=== PATIENT | female | born 1955 | race Caucasian/White ===

== ENCOUNTER 2016-09-29 10:15 | Observation (INO) | payer MEDICAID ==
[2016-09-29] MEDS ORDERED: BUPIVACAINE 0.5% 30 ML SDV ONE (10:57)
[2016-09-29] MEDS ORDERED: ceFAZolin 2 GM/DEXTROSE 100 ML IV ONE (11:00)
[2016-09-29] MEDS ORDERED: fentaNYL 100 MCG/2 ML INJ ONE (12:22)
[2016-09-29] MEDS ORDERED: PROPOFOL 200 MG/20 ML VIAL ONE (12:23)
[2016-09-29] MEDS ORDERED: MIDAZOLAM 2 MG/2 ML VIAL ONE (12:39)
[2016-09-29 13:26] LABS: ANION GAP 16 mEq/L (8-16); CARBON DIOXIDE 36 mEq/l (22-31); CHLORIDE 87 mEq/L (97-110); SODIUM 139 mEq/L (134-144)
[2016-09-29 13:38] LABS: POTASSIUM 2.5 mEq/L (3.5-5.2)
[2016-09-29] MEDS ORDERED: PROTOCOL POTASSIUM 1 DOSE MISC PRN (14:22)
[2016-09-29] MEDS ORDERED: diphenhydrAMINE 25 MG CAP PO PRN (14:23)
[2016-09-29] MEDS ORDERED: ONDANSETRON DISINTEGRATING 4 MG TAB PO PRN (14:23)
[2016-09-29] MEDS ORDERED: HYDROCODONE/APAP 5/325 TAB PO PRN (14:23)
[2016-09-29] MEDS ORDERED: ACETAMINOPHEN 325 MG TAB PO PRN (14:23)
[2016-09-29] MEDS ORDERED: ONDANSETRON 4 MG/2 ML VIAL IVP PRN (14:23)
[2016-09-29] MEDS: POTASSIUM Cl (KCl) 50 ML IV SCH ×5 (17:11→23:35)
[2016-09-29 20:06] LABS: POTASSIUM 3.2 mEq/L (3.5-5.2)
[2016-09-29] MEDS: IBUPROFEN 800 MG TAB PO SCH (23:01)
[2016-09-30] MEDS: POTASSIUM Cl (KCl) 50 ML IV SCH ×4 (01:36→09:22)
[2016-09-30 03:40] VITALS: RESP 16
[2016-09-30] MEDS: IBUPROFEN 800 MG TAB PO SCH (05:46)
--- NOTE | 2016-09-30 06:55 | SOAPPROG ---
SOAP Progress Note Assessment/Plan: Assessment: POD # 2 s/p lap J tube for obstruction due to pancreatic cancer Hypokalemia - improved DC home - will go to [facility] for chemo and they will set up tube feeds J tube education S/: Feeling well, did not take any pain medications. No emesis last nigh Incisions cdi Soft and non tender Plan: 09/30/16 06:53 Objective: Vital Signs Temp Pulse Resp BP Pulse Ox 36.6 C 70 16 84/51 L 98 09/30/16 03:39 09/30/16 03:39 09/30/16 03:39 09/30/16 03:39 09/30/16 03:39 09/29/16 09/30/16 10/01/16 05:59 05:59 05:59 Intake Total 1900 Output Total 25 Balance 1875 ICD10 Worksheet Patient Problems: Problems Problem Status Onset Pancreatic cancer Acute - ICD10 Problem Qualifiers (1) Pancreatic cancer Qualifiers: Pancreatic malignancy location: P
[2016-09-30 06:56] LABS: POTASSIUM 3.4 mEq/L (3.5-5.2)
[2016-09-30] MEDS ORDERED: POTASSIUM Cl (KCl) 10 MEQ/100 ML BAG IV ONE (07:31)
[2016-09-30 08:52] VITALS: BP 108/60; PULSE 92; TEMP 97.2; O2SAT 93
--- NOTE | 2016-09-30 11:21 | GOP ---
[f rep st] OPERATIVE REPORT DATE OF OPERATION: 09/29/2016 SURGEON: Deja Yao MD PERCH MACHINE INSPECTOR: Amaris Meehan, MEREDITH. ANESTHESIA: General. PREOPERATIVE DIAGNOSIS: Pancreatic cancer that is obstructing the duodenum and inability to tolerate p.o. intake. POSTOPERATIVE DIAGNOSIS: Pancreatic cancer that is obstructing the duodenum and inability to tolerate p.o. intake. PROCEDURE PERFORMED: Laparoscopic-assisted jejunostomy tube placement. FINDINGS: No obvious stigmata of pancreatic cancer. I did not mobilize the duodenum to visualize the obstruction. SPECIMENS: None. ESTIMATED BLOOD LOSS: 5 cc. INDICATIONS: The patient is a 61-year-old woman with pancreatic cancer. It is believed the mass is obstructing the duodenum upstream. She is able to the eat throughout the day but then has large volume emesis every night. She has lost a significant amount of weight. She is undergoing chemotherapy. DESCRIPTION OF PROCEDURE: Patient was brought into the operating room, placed supine on the table, and general anesthesia was administered. Her abdomen was prepped and draped in the usual sterile fashion. I infiltrated all sites with 0.5% Marcaine prior to making incisions. I made an incision at the umbilicus. I inserted the Veress needle. It passed the hanging drop test. Her abdomen insufflated easily to a pressure of 15 mmHg. I placed a 5 mm camera with a trocar at this site. I placed 2 additional 5 mm trocars on the right side of her abdomen. I identified the ligament of Treitz and followed this somewhat distally. I selected a point on her left upper quadrant to place the jejunostomy. I inserted the making the Bj-Patino Sizer 18-Albanian 3 cm. Next, I made a small incision by her umbilicus. I inserted an Kiran wound protector. I created 4 sutures on the jejunum and adhered these loosely to the anterior abdominal wall. I then created a pursestring on the jejunum. I made an enterotomy in the center of the pursestring. I inserted the jejunostomy tube and threaded this so that the tube was going distally. I tightened the pursestring suture and then I tightened the second layer of suture I reinsufflated the abdomen. I filled the balloon under direct vision. I then placed 60 cc of saline in her jejunum with no obvious leaks. I saw 1 area where the jejunum was not fully secured to the anterior abdominal wall. I removed the laparoscopic equipment and I placed 1 additional suture from the jejunum to the anterior abdominal wall. The midline wound was closed with 0 PDS. All skin was closed with 4-0 Monocryl. She was awakened in the operating room, extubated, transferred to PACU in stable condition. /[id number]/MODL MTDD
--- NOTE | 2016-09-30 14:40 | POSTANESTH ---
Post Anesthetic Evaluation Notes: Patient's potassium level up to 3.4 this am. VSS
== END 2016-09-30 10:55 | disposition home or self-care (01) ==
LOC: F3E 10:15
PROVIDERS: ADMIT Surgery; ATTEND Surgery
PROC: 0DHA4UZ Insertion of Feeding Device into Jejunum, Percutaneous Endoscopic Approach (ICD-10-PCS; principal; 2016-09-29 12:00)
DX: K31.5 Obstruction of duodenum (principal); C25.9 Malignant neoplasm of pancreas, unspecified; C78.7 Secondary malignant neoplasm of liver and intrahepatic bile duct; E87.6 Hypokalemia
CPT/HCPCS: 44372; 97165; G0378; J0690; J1642; J2250; J2704; J3010

== ENCOUNTER → 2016-10-05 | Outpatient (CLI) | payer MEDICAID | LOC: FIMAGING 14:59 | DX: J40 Bronchitis, not specified as acute or chronic (principal); Z92.25 Personal history of immunosuppression therapy ==

== ENCOUNTER 2016-10-06 10:32 | Inpatient (IN) | payer MEDICAID ==
[2016-10-06] MEDS ORDERED: NS 1,000 ML IV ONE (11:20)
[2016-10-06 12:35] LABS: ABSOLUTE IMMATURE GRANULOCYTES 0.04 10^3/uL (0.00-0.10); ADD DIFF? NO; ADD MORPH? NO; ADD SCAN? NO; ATYPICAL LYMPHOCYTE FLAG 80 (0-99); FRAGMENT RBC FLAG 0 (0-99); HEMATOCRIT 37.9 % (38.0-47.0); HEMOGLOBIN 12.9 g/dL (12.6-16.3); LEFT SHIFT FLG 20 (0-99); LIPEMIA HEMOLYSIS FLAG 90 (0-99); MEAN CELL HEMOGLOBIN 30.9 pg (27.9-34.1); MEAN CELL VOLUME 90.7 fL (81.5-99.8); MEAN PLATELET VOLUME 12.7 fL (8.7-11.7); PLATELET CLUMPS FLAG 0 (0-99); PLATELET COUNT 136 10^3/uL (150-400); RED BLOOD CELL COUNT 4.18 10^6/uL (4.18-5.33); RED CELL DISTRIBUTION WIDTH 15.3 % (11.5-15.2)
[2016-10-06 12:42] LABS: ALANINE AMINOTRANSFERASE 32 IU/L (9-52); ALBUMIN 3.6 g/dL (3.5-5.0); ALKALINE PHOSPHATASE 86 IU/L (38-126); ANION GAP 16 mEq/L (8-16); ASPARTATE AMINOTRANSFERASE 45 IU/L (14-46); BILIRUBIN,TOTAL 1.1 mg/dL (0.1-1.4); BILIRUBIN-CONJUGATED 0.6 mg/dL (0.0-0.5); BILIRUBIN-UNCONJUGATED 0.5 mg/dL (0.0-1.1); CALCIUM 9.2 mg/dL (8.5-10.4); CARBON DIOXIDE 32 mEq/l (22-31); CHLORIDE 88 mEq/L (97-110); CREATININE 0.8 mg/dL (0.6-1.0); GLOMERULAR FILTRATION RATE > 60; GLUCOSE 93 mg/dL (70-100); POTASSIUM 3.2 mEq/L (3.5-5.2); SODIUM 136 mEq/L (134-144); TOTAL PROTEIN 6.6 g/dL (6.3-8.2)
[2016-10-06] MEDS ORDERED: AZITHROMYCIN IV 500 MG in D5W 250 ML IV ONE (13:04)
[2016-10-06] MEDS ORDERED: ONDANSETRON 4 MG/2 ML VIAL IVP ONE (13:13)
--- NOTE | 2016-10-06 13:13 | EDPHY ---
H & P Time Seen by Provider: 10/06/16 11:37 HPI/ROS: HPI Vomiting, I have pneumonia. History of pancreatic cancer. 61-year-old female by private vehicle with friend. Patient has a history of pancreatic cancer. She had a J-tube placed a few days ago. This was to circumvent a blockage in her proximal small intestine associated with her pancreatic cancer. She reports that yesterday she received some formula to insert through the J-tube. She administered by pump 3-4 servings of this formula. She then felt extremely uncomfortable and backed up. She had an episode of vomiting. She had abdominal discomfort through the night and then felt bloated again this morning had another episode of vomiting. She felt the urge to defecate but was unable to do so. She then defecated on herself well in the waiting room to the emergency department. She also reports that she had a chest x-ray done yesterday which showed a pneumonia. She was to fill a prescription for antibiotics yesterday but was unable to do this at her [facility]. ROS: Constitutional: No fever, no chills. No weakness. Eyes: No discharge. No changes in vision. ENT: No sore throat. No nasal congestion or rhinorrhea. Respiratory: No cough. No shortness of breath. Cardiac: No chest pain, no palpitations. Gastrointestinal: As above. Constipation. No diarrhea. Genitourinary: No hematuria. No dysuria or increased frequency with urination. Musculoskeletal: No back pain. No neck pain. No myalgias or arthralgias. Skin: No rashes. Neurological: No headache. No focal weakness or altered sensation. Past medical history: Pancreatic cancer. She is under treatment by Dr. Constantino, oncologist, she is currently undergoing chemotherapy. Last treatment was last Wednesday. She is scheduled for another treatment tomorrow. Left hip replacement and pneumonia as above. Social history: Here with her friend. Nonsmoker. No alcohol. Physical Exam: General Appearance: Alert. This patient is responding to questions appropriately and in full sentences. This patient appears well-hydrated and well-nourished. Eyes: Pupils equal and round no pallor or injection. No lid edema, erythema or injection. Respiratory: There are no retractions, lungs are clear to auscultation anteriorly with good air movement bilaterally. Cardiovascular: Regular rate and rhythm. No murmur. Gastrointestinal: Abdomen is soft with mild and vague tenderness throughout, incisions from J-tube placement are clean dry and intact, no masses, bowel sounds present but diminished. No focal tenderness at McBurney's point. No Ocrtez sign. Neurological: Motor sensory function is grossly intact. Cranial nerves are normal. Gait is normal. Skin: Warm and dry, no rashes. Musculoskeletal: Neck is supple and nontender. Extremities are symmetrical. All joints range without pain or impingement. Psychiatric: No agitation. No depression. Database: EKG: Imaging: Chest x-ray PA and lateral from yesterday; the cardiac mediastinal silhouette is unremarkable. No pneumothorax. Atelectasis versus patchy pneumonia left lower base. No acute cardiopulmonary disease process noted. Interpreted by me. Upright abdominal x-ray series: No free air. Upper abdomen air-fluid levels. Indicative of partial small-bowel obstruction versus ileus. Interpreted by me. Procedures: Emergency department course: IV placed. She was placed on a lunchroom monitor. She was started on IV normal saline with 1-2 L to be given over the next 1-2 hours. After review of her medical records and chest x-ray she was started on IV azithromycin and IV Rocephin. She was in the hospital for 1 day last week. Hospital-acquired pneumonia is unlikely. Plan will be to admit her to the hospitalist service. Surgical consultation as needed for progress in symptoms of bowel obstruction. 1:30 p.m., discussed with hospitalist service. I do not feel that emergent surgical consultation is needed at this time. Patient accepted to the hospitalist service under the care of Dr. Koenig. Surgery will be consulted by the hospitalist service if the patient develops worsening abdominal pain or vomiting. Patient will be admitted to [address] [place] [address]. 2:00 p.m., patient resting comfortably. Repeat abdominal exam she is soft, nontender nondistended. She was admitted to the hospitalist service in stable and improved condition. Differential Diagnosis: The differential diagnosis on this patient includes but is not limited to pneumonia, ileus versus partial small-bowel obstruction, history of pancreatic cancer, on chemotherapy. This represents a partial list of diagnoses considered. These considerations are based on history, physical exam, past history, reassessment and diagnostic testing. Smoking Status: Never smoked Constitutional: Initial Vital Signs Temperature (C) 37.6 C 10/06/16 10:36 Heart Rate 113 H 10/06/16 10:36 Respiratory Rate 20 10/06/16 10:36 Blood Pressure 102/68 10/06/16 10:36 O2 Sat (%) 93 10/06/16 10:36 O2 Delivery Mode Room Air Allergies/Adverse Reactions: hydromorphone [From Dilaudid] Allergy (Verified 10/06/16 10:35) Home Medications: Medication Instructions Recorded NK [No Known Home Meds] 09/29/16 Medical Decision Making - Data Points Laboratory Results: Laboratory Results 10/06/16 11:10 10/06/16 11:10 Medications Given: Discontinued Medications Sodium Chloride (Ns) 1,000 mls @ 0 mls/hr IV ONCE ONE PRN Reason: Wide Open Stop: 10/06/16 11:21 Last Admin: 10/06/16 11:20 Dose: 1,000 mls Azithromycin 500 mg/ Dextrose 255 mls @ 255 mls/hr IV EDNOW ONE PRN Reason: Protocol Stop: 10/06/16 14:03 Last Admin: 10/06/16 13:55 Dose: 255 mls Ceftriaxone Sodium/Dextrose (Rocephin 1 Gm (Premix)) 50 mls @ 100 mls/hr IV EDNOW ONE PRN Reason: Protocol Stop: 10/06/16 13:33 Last Admin: 10/06/16 13:05 Dose: 50 mls Potassium Chloride (Potassium Cl 10 Meq (Premix)) 100 mls @ 100 mls/hr IV Q1H GURPREET Stop: 10/06/16 17:44 Last Admin: 10/06/16 17:01 Dose: 100 mls Potassium Chloride (Potassium Cl 10 Meq (Premix)) 100 mls @ 100 mls/hr IV ONCE ONE Stop: 10/06/16 23:59 Last Admin: 10/06/16 23:04 Dose: 100 mls Ondansetron HCl (Zofran) 4 mg IVP EDNOW ONE Stop: 10/06/16 13:14 Last Admin: 10/06/16 13:56 Dose: Not Given Departure - Departure Disposition: [facility] Acute Clinical Impression: Pneumonia, Pancreatic cancer, Partial small bowel obstruction
[2016-10-06] MEDS ORDERED: ONDANSETRON 4 MG/2 ML VIAL IVP PRN (14:36)
[2016-10-06] MEDS ORDERED: ONDANSETRON DISINTEGRATING 4 MG TAB PO PRN (14:36)
[2016-10-06] MEDS ORDERED: ACETAMINOPHEN 325 MG TAB PO PRN (14:36)
[2016-10-06] MEDS ORDERED: PROMETHAZINE HCL 25 MG/ML INJ IVP PRN (15:06)
[2016-10-06] MEDS: POTASSIUM Cl (KCl) 100 ML IV SCH ×2 (15:13→17:01)
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
[2016-10-06] MEDS: NS 1,000 ML IV SCH (21:19)
[2016-10-06] MEDS ORDERED: POTASSIUM Cl (KCl) 100 ML IV ONE (23:00)
[2016-10-07 04:31] LABS: HEMATOCRIT 31.1 % (38.0-47.0); HEMOGLOBIN 10.5 g/dL (12.6-16.3); MEAN CELL HEMOGLOBIN 30.9 pg (27.9-34.1); MEAN CELL HEMOGLOBIN CONCENTR. 33.8 g/dL (32.4-36.7); MEAN CELL VOLUME 91.5 fL (81.5-99.8); RED BLOOD CELL COUNT 3.4 10^6/uL (4.18-5.33); RED CELL DISTRIBUTION WIDTH 15.3 % (11.5-15.2)
[2016-10-07 04:50] LABS: ANION GAP 11 mEq/L (8-16); CALCIUM 8.2 mg/dL (8.5-10.4); CARBON DIOXIDE 30 mEq/l (22-31); CHLORIDE 95 mEq/L (97-110); CREATININE 0.6 mg/dL (0.6-1.0); GLOMERULAR FILTRATION RATE > 60; GLUCOSE 80 mg/dL (70-100); POTASSIUM 3.1 mEq/L (3.5-5.2); SODIUM 136 mEq/L (134-144)
[2016-10-07] MEDS: NS 1,000 ML IV SCH (05:27)
--- NOTE | 2016-10-07 07:45 | GCON ---
[f rep st] CONSULTATION HEMATOLOGY/ONCOLOGY CONSULTATION REASON FOR CONSULTATION: Admission for recurrent nausea and vomiting. RECOMMENDATIONS: Surgical consultation for consideration of possible gastrojejunostomy at some in . EXECUTIVE SUMMARY: The patient is a very nice, 61-year-old woman with a diagnosis of pancreatic can cer since July 08, 2016, with liver metastases. She is on first-line therapy with Abraxane and gemc itabine and has continued on that treatment with relatively stable disease. A CT scan, for example, on July 08 revealed a 2.2 cm mass and metastasis in the liver with a 2.7 x 3.9 cm mass in the tail of the pancreas. The CAT scans were reviewed today. I looked at the last film which was September 21 and I compared that to the film from July 27. The findings reveal a hypodense lesion in the right lob e of the liver which I measured at about 37 mm on September 21 and I compared that to the film from July 27 where that mass was about, on my measurements, 22 mm. The patient's films on September 21 revealed a v lisa large and distended stomach and the primary tumor is small and is located in the tail of the bull creas. It looks like it may be even slightly smaller at 21 mm. This duodenal obstruction is most likely due to the pancreatic cancer and raises a question whether she would benefit from a gastrojejunostomy. I have reached out to Dr. Yao. I have asked her to e valuate the patient; however, the patient is now on day 8, cycle 3 of chemotherapy with Abraxane and gemcitabine and she is starting to develop a mild pancytopenia. Her white count is 3.[address] atelet count is 136. So, before anything could be done surgically, she would need to have some bola very in her blood counts. PAST MEDICAL HISTORY: Reveals that she was initially diagnosed in [place]. The patient has transf erred her care to [place] for personal reasons. She is a nonsmoker. She has had an influenza vacci ne. Her past medical history is remarkable for some bronchitis, asthma and benign positional vertig o. She has had a left hip replacement, a right arm fracture and a T and A. FAMILY HISTORY: Her father of small cell lung cancer and her mother at 59 of breast cance r. She has 1 sister who of renal failure. She had a maternal grandmother who of colon ca ncer and a maternal aunt who of uterine cancer. 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 She does not use alcohol. REVIEW OF SYSTEMS: She is very pleasant. She is not in any pain. She denies any headache. She di d not have any shortness of breath. There is no chest pain and she denies any abdominal pain. She says that when her stomach fills up with bowel she vomits it up and she came into the hospital [facility] of difficulty with bowel movements. The patient underwent a small bowel follow-through and did n ot have any evidence for a small bowel obstruction. CLINICAL EXAMINATION: GENERAL: A well-developed, well-nourished, white female. HEENT: She has no scleral icterus. NECK: I do not detect any cervical or supraclavicular axillary adenopathy. LUNG S: Clear to P and A. CV: S1 normal, S2 normally split. No S3, S4 or murmur. ABDOMEN: She has a jejunostomy tube in the epigastrium. I do not detect any hepatosplenomegaly or abdominal masses or ascites. EXTREMITIES: There is no extremity edema or calf tenderness. NEUROLOGICAL: She is inta ct. ASSESSMENT BY PROBLEM: 1. Duodenal obstruction due to pancreatic cancer. 2. Evolving mild pancytopenia from gemcitabine and Abraxane. RECOMMENDATIONS: I would recommend a surgical consult with Dr. Yao and I recommended, possibly john denis is a candidate for a gastrojejunostomy. I am not as familiar with her case as Dr. Yao and I wou ld defer to, obviously, her judgment. The pancreatic cancer may be progressing. The CA-19-9 had been ordered and the one on July 15 was 2700, the one on September 23 was 5440. Her tumor has been consent for foundation 1 testing and the resul ts will be back around October 13 to look for alternative options in a clinical trial setting. Obvious ly her prognosis is very concerning although she is not eminently in danger at this point. I would estimate her prognosis though most likely less than 6 months. /[id number]/MODL
[2016-10-07] MEDS ORDERED: ENOXAPARIN 40 MG/0.4 ML SYR SC SCH (09:00)
[2016-10-07] MEDS ORDERED: AZITHROMYCIN 250 MG TAB PO SCH (09:00)
[2016-10-07] MEDS ORDERED: POTASSIUM CL 20 MEQ/15 ML UDCUP PO ONE (10:17)
[2016-10-07] MEDS: ENOXAPARIN 40 MG/0.4 ML SYR SC SCH (10:25)
[2016-10-07] MEDS: POTASSIUM Cl (KCl) 100 ML IV SCH ×5 (11:08→16:35)
--- NOTE | 2016-10-07 12:55 | HOSPPROG ---
Hospitalist Progress Note Assessment/Plan: #Nausea/vomiting: improved. h/o duodenal obstruction due to cancer -small bowel follow through negative for SBO -will have dietary assist with TFs -Dr Dia consulted Dr. Yao for G-J tube #Hypokalemia: repleting. Repeat BMP this afternoon #Metastatic pancreatic cancer -scheduled for chemo today -I counseled her on Palliative care and she is interested in speaking with them #Fever: low-grade. + metapneuomvirus. Supportive care. No IV abx #Thrombocytopenia: due to chemo #Diet: TFs #Disp: warrants inpt admission for surgical consult, IVFs, electrolyte repletion Subjective: mild abd distension. No pain Objective: Vital Signs Temp Pulse Resp BP Pulse Ox 36.8 C 82 18 109/67 96 10/07/16 07:55 10/07/16 07:55 10/07/16 07:55 10/07/16 07:55 10/07/16 07:55 Microbiology 10/06/16 15:50 Respiratory Panel (PCR) - Final Nasal, Sinus - [place] Viral Transport Human Metapneumovirus Laboratory Results 10/07/16 03:54 10/07/16 03:54 10/06/16 10/07/16 10/08/16 05:59 05:59 05:59 Intake Total 3000 Output Total 150 Balance 2850 - Physical Exam Constitutional: no apparent distress Eyes: PERRL Ears, Nose, Mouth, Throat: moist mucous membranes Cardiovascular: regular rate and rhythym, no murmur, rub, or gallop Respiratory: no respiratory distress, rhonchi Gastrointestinal: normoactive bowel sounds, soft, non-tender abdomen, distension , other (J-tube in place with no redness/drainage) Genitourinary: no bladder fullness Skin: warm Musculoskeletal: full muscle strength Neurologic: AAOx3 ICD10 Worksheet Patient Problems: Problems Problem Status Onset Pancreatic cancer Acute Partial small bowel obstruction Acute Pneumonia Acute Pancreatic cancer Acute
--- NOTE | 2016-10-07 13:14 | SOAPPROG ---
SOAP Progress Note Assessment/Plan: Assessment: will dictate full consult bilious emesis continued would like venting gastrostomy tube I put in order to be done through IR Plan: 10/07/16 13:13 Objective: Vital Signs Temp Pulse Resp BP Pulse Ox 36.8 C 82 18 109/67 96 10/07/16 07:55 10/07/16 07:55 10/07/16 07:55 10/07/16 07:55 10/07/16 07:55 Microbiology 10/06/16 15:50 Respiratory Panel (PCR) - Final Nasal, Sinus - [place] Viral Transport Human Metapneumovirus Laboratory Results 10/07/16 03:54 10/07/16 03:54 10/06/16 10/07/16 10/08/16 05:59 05:59 05:59 Intake Total 3000 Output Total 150 Balance 2850 ICD10 Worksheet Patient Problems: Problems Problem Status Onset Pancreatic cancer Acute Partial small bowel obstruction Acute Pneumonia Acute Pancreatic cancer Acute
[2016-10-07 14:22] LABS: ANION GAP 15 mEq/L (8-16); CALCIUM 8.4 mg/dL (8.5-10.4); CARBON DIOXIDE 27 mEq/l (22-31); CHLORIDE 94 mEq/L (97-110); CREATININE 0.6 mg/dL (0.6-1.0); GLOMERULAR FILTRATION RATE > 60; GLUCOSE 75 mg/dL (70-100); POTASSIUM 3.5 mEq/L (3.5-5.2); SODIUM 136 mEq/L (134-144)
[2016-10-08 05:56] LABS: ANION GAP 15 mEq/L (8-16); CALCIUM 8.5 mg/dL (8.5-10.4); CARBON DIOXIDE 26 mEq/l (22-31); CHLORIDE 96 mEq/L (97-110); CREATININE 0.6 mg/dL (0.6-1.0); GLOMERULAR FILTRATION RATE > 60; GLUCOSE 69 mg/dL (70-100); POTASSIUM 3.5 mEq/L (3.5-5.2); SODIUM 137 mEq/L (134-144)
[2016-10-08 06:02] LABS: APTT 28.6 SEC (23.0-38.0)
--- NOTE | 2016-10-08 06:15 | GCON ---
[f rep st] CONSULTATION DATE OF CONSULTATION: 10/07/2016 REFERRING PHYSICIAN: Philip Dia MD REQUESTING PHYSICIAN: Philip Dia MD. CHIEF COMPLAINT: Continued emesis. HISTORY OF PRESENT ILLNESS: The patient is a 61-year-old woman with a history of pancreatic cancer. She had a J-tube placed by me several days ago. She reports that she has had difficulty in handli ng the feeds, and has not had good instruction at home. She is continuing to have bilious emesis. She felt that she was blocked, and then took magnesium citrate. She had a very small bowel movement . Due to increased abdominal distention, not tolerating J-tube feeds, and emesis, she presented to the ER. When she arrived at the ER, the magnesium citrate began to work, and she has had several wendy wel movements since then. She feels so much better since she has had these bowel movements. She adkins s not had emesis since yesterday morning. PAST MEDICAL HISTORY: Pancreatic cancer. PAST SURGICAL HISTORY: Jejunostomy and left hip replacement. SOCIAL HISTORY: She denies tobacco use. She does not use alcohol. REVIEW OF SYSTEMS: Ten-point review of systems is negative, except for HPI. FAMILY HISTORY: Unchanged. PHYSICAL EXAMINATION: VITAL SIGNS: 36.8, 82, 109/67, 18, 96% on 3 L. GENERAL: Pleasant woman adamaris lowe in bed. She is well nourished. She is surrounded by family and friends. HEENT: Alopecia. No g ross hearing deficits. Mucous membranes dry. Pupils equal and round. No scleral icterus. LUNGS: No increased work of breathing. CARDIAC: Regular rate. ABDOMEN: J-tube site and incision clean, dry and intact. Bowel sounds are present. She is soft and nontender. MUSCULOSKELETAL: Normal na ils. PSYCH: Mood and affect normal. NEURO: Grossly intact. LABORATORY DATA: Results reviewed. I personally reviewed her laboratory work. Her platelets are 8 5. She had a small bowel follow-through, which showed contrast in the jejunum and no obvious signs of l eakage. IMPRESSION/PLAN: The patient is a 61-year-old with pancreatic cancer. The cancer is compressing he r duodenum. I was asked if a gastrojejunostomy tube is appropriate. At this time, I cannot remove her jejunostomy tube, as it is less than a week old. She could have a venting gastrostomy tube. I discussed this case with both Interventional Radiology, as well as with Dr. Perez. One issue with reviewing her CT scan, is that she does have some varices on her stomach. The case will continue to be discussed, but I do think it is a possibility for a percutaneous gastrostomy tube or a drain to be placed. There is a risk of bleeding from this. The other option is to do an open gastrostomy tu be. We also discussed duodenal stents, although I think for her, the option of a venting gastrostom y tube would be better. She will continue to be n.p.o. We will also work on social work and having better home health, who is more accustomed to helping with her tube feedings. /[id number]/MODL
[2016-10-08 06:31] LABS: INR 1.46 (0.83-1.16); PROTIME(PATIENT) 17.7 SEC (12.0-15.0)
--- NOTE | 2016-10-08 07:36 | SOAPPROG ---
[facility] Progress Note Assessment/Plan: Assessment: 1. Duodenal obstruction from pancreatic cancer: She will have a venting gastrostomy performed by surgery today. 2. Worsening pancreatic cancer: She wants to have a discussion tomorrow about prognosis, options, and what to expect. Plan: 10/08/16 07:27 Subjective: Priya is a very pleasant 61 yo F with metastatic pancreatic cancer and recurrent N/V due to duodenal obstruction. Objective: Vital Signs Temp Pulse Resp BP Pulse Ox 36.8 C 82 18 110/57 L 98 10/08/16 05:32 10/08/16 05:32 10/08/16 05:32 10/08/16 05:32 10/08/16 05:32 Laboratory Results 10/08/16 05:40 10/07/16 10/08/16 10/09/16 05:59 05:59 05:59 Intake Total 350 Balance 350 PT 17.7 SEC (12.0-15.0) H 10/08/16 05:40 INR 1.46 (0.83-1.16) H 10/08/16 05:40 Awake. vomiting Neck neg Lungs clear CVS reg Abd non tender ICD10 Worksheet Patient Problems: Problems Problem Status Onset Pancreatic cancer Acute Pneumonia Acute Pancreatic cancer Acute Partial small bowel obstruction Acute
[2016-10-08 08:17] LABS: % IMMATURE GRANULYOCYTES 0.5 % (0.0-1.1); ABSOLUTE IMMATURE GRANULOCYTES 0.03 10^3/uL (0.00-0.10); ADD DIFF? NO; ADD MORPH? NO; ADD SCAN? YES; FRAGMENT RBC FLAG 0 (0-99); HEMATOCRIT 33.1 % (38.0-47.0); HEMOGLOBIN 11.3 g/dL (12.6-16.3); LEFT SHIFT FLG 10 (0-99); LIPEMIA HEMOLYSIS FLAG 90 (0-99); MEAN CELL HEMOGLOBIN 31.7 pg (27.9-34.1); MEAN CELL HEMOGLOBIN CONCENTR. 34.1 g/dL (32.4-36.7); MEAN CELL VOLUME 92.7 fL (81.5-99.8); MEAN PLATELET VOLUME 11.9 fL (8.7-11.7); PLATELET CLUMPS FLAG 10 (0-99); PLATELET COUNT 120 10^3/uL (150-400); RED BLOOD CELL COUNT 3.57 10^6/uL (4.18-5.33); RED CELL DISTRIBUTION WIDTH 15.5 % (11.5-15.2)
[2016-10-08 08:18] LABS: ATYPICAL LYMPHOCYTE FLAG 200 (0-99)
[2016-10-08 09:24] LABS: SCAN NEGATIVE
--- NOTE | 2016-10-08 09:38 | HOSPPROG ---
Hospitalist Progress Note Assessment/Plan: #Nausea/vomiting: improved. h/o duodenal obstruction due to cancer -small bowel follow through negative for SBO -will have dietary assist with TFs #Duodenal obstruction: vented gastrostomy tube per surgery today #Hypokalemia: repleting. Repeat BMP this afternoon #Metastatic pancreatic cancer -scheduled for chemo today -I counseled her on Palliative care and she is interested in speaking with them #Fever: low-grade. + metapneuomvirus. Supportive care. No IV abx #Thrombocytopenia: due to chemo #Diet: TFs #Disp: warrants inpt admission for surgical consult, IVFs, electrolyte repletion Subjective: nausea overnight. Low glucose this morning Objective: Vital Signs Temp Pulse Resp BP Pulse Ox 36.7 C 79 16 110/49 L 95 10/08/16 08:17 10/08/16 08:17 10/08/16 08:17 10/08/16 08:17 10/08/16 08:17 Laboratory Results 10/08/16 08:00 10/08/16 05:40 10/07/16 10/08/16 10/09/16 05:59 05:59 05:59 Intake Total 350 Balance 350 PT 17.7 SEC (12.0-15.0) H 10/08/16 05:40 INR 1.46 (0.83-1.16) H 10/08/16 05:40 - Physical Exam Constitutional: chronically ill appearing Eyes: PERRL Ears, Nose, Mouth, Throat: dry mucous membranes Cardiovascular: regular rate and rhythym, no murmur, rub, or gallop Respiratory: no respiratory distress Gastrointestinal: normoactive bowel sounds, soft, non-tender abdomen, other (j- tube in place. Mild distension) Musculoskeletal: full muscle strength Neurologic: AAOx3, CN II-XII Intact Psychiatric: interacting appropriately ICD10 Worksheet Patient Problems: Problems Problem Status Onset Pancreatic cancer Acute Partial small bowel obstruction Acute Pneumonia Acute Pancreatic cancer Acute
[2016-10-08] MEDS: D5W NS 1,000 ML IV SCH ×2 (09:58→16:05)
[2016-10-08] MEDS ORDERED: D50W 25 GM/50 ML SYR IVP PRN (10:53)
[2016-10-08] MEDS ORDERED: D10W 250 ML PRN HYPOGLYCEMIA IV (11:30)
[2016-10-08] MEDS ORDERED: fentaNYL 100 MCG/2 ML INJ ONE (12:44)
[2016-10-08] MEDS ORDERED: MIDAZOLAM 2 MG/2 ML VIAL ONE (12:45)
[2016-10-08] MEDS ORDERED: LIDOCAINE 2% JELLY 20 ML (UROJECT) ONE (13:02)
[2016-10-08] MEDS ORDERED: IOPAMIDOL (ISOVUE-300) 100 ML BTL ONE (13:38)
[2016-10-08] MEDS ORDERED: LIDOCAINE 1% 300 MG/30 ML SDV ONE (13:39)
--- NOTE | 2016-10-08 14:01 | POSTOPPROG ---
Post Op Note Date of Operation: 10/08/16 Surgeon: Marina Vinson Anesthesia: IV Sedation (fentanyl and versed) Pre-op Diagnosis: gastric outlet obstruction Post-op Diagnosis: same Indication: Q2hr vomitting; CA Procedure: NG tube placement; G-tube placement Findings: 1900cc gastric content aspirated; 16Fr pigtail G-tube placed for venting Inf/Abcess present in the surg proc area at time of surgery?: No Depth: Superfical (Skin SQ) EBL: Minimal Complications: None immediately
--- NOTE | 2016-10-08 15:07 | PDPCPN ---
Palliative Care Progress Note Assessment/Plan: Assessment: Did not see patient as was getting a venting g tube placement. Did speak with her family sister, brother, son, and LAMBERTO at the bedside. They state Tammy told them that the "chemo was not working anymore". They are hoping to learn from oncology more about options now and her prognosis. The family would like to be present for a discussion to help with arranging resources once she leave (ie home health care, hospice, caregivers, etc). They have felt like they did not have the most support when she went home last week so want to make sure things are set up at home. Also discussed in general terms what happens at the end of life in cancer patients. Plan: Will follow up again with patient and family tomorrow. Subjective: did not see patient Objective: Vital Signs Temp Pulse Resp BP Pulse Ox 36.7 C 79 16 110/49 L 95 10/08/16 08:17 10/08/16 08:17 10/08/16 08:17 10/08/16 08:17 10/08/16 08:17 Laboratory Results 10/08/16 08:00 10/08/16 05:40 10/07/16 10/08/16 10/09/16 05:59 05:59 05:59 Intake Total 350 Output Total 1800 Balance 350 -1800 PT 17.7 SEC (12.0-15.0) H 10/08/16 05:40 INR 1.46 (0.83-1.16) H 10/08/16 05:40 ICD10 Worksheet Patient Problems: Problems Problem Status Onset Palliative care encounter Acute Pancreatic cancer Acute Partial small bowel obstruction Acute Pneumonia Acute Pancreatic cancer Acute - ICD10 Problem Qualifiers (1) Palliative care encounter
--- NOTE | 2016-10-08 21:05 | SOAPPROG ---
SOAP Progress Note Assessment/Plan: Assessment: s/p lap assisted J tube Had continued emesis. drain in stomach by Dr. Vinson today Feeling well Start tube feeds tomorrow. No more than 50% of goal - advance over 3-5 days depending on if she tolerates it Home if tolerates 50% of tube feeds Can either manually drain g tube 3x per day or put to gravity S: Feeling well after procedure J tube and G tube in place Plan: 10/07/16 13:13 10/08/16 21:03 Objective: Vital Signs Temp Pulse Resp BP Pulse Ox 36.6 C 73 16 107/67 97 10/08/16 19:08 10/08/16 19:08 10/08/16 19:08 10/08/16 19:08 10/08/16 19:08 Laboratory Results 10/08/16 08:00 10/08/16 05:40 10/07/16 10/08/16 10/09/16 05:59 05:59 05:59 Intake Total 350 1700 Output Total 1800 Balance 350 -100 PT 17.7 SEC (12.0-15.0) H 10/08/16 05:40 INR 1.46 (0.83-1.16) H 10/08/16 05:40 ICD10 Worksheet Patient Problems: Problems Problem Status Onset Palliative care encounter Acute Pancreatic cancer Acute Partial small bowel obstruction Acute Pneumonia Acute Pancreatic cancer Acute
[2016-10-09 06:21] LABS: HEMATOCRIT 35.3 % (38.0-47.0); HEMOGLOBIN 11.9 g/dL (12.6-16.3); MEAN CELL HEMOGLOBIN 30.8 pg (27.9-34.1); MEAN CELL HEMOGLOBIN CONCENTR. 33.7 g/dL (32.4-36.7); MEAN CELL VOLUME 91.5 fL (81.5-99.8); RED BLOOD CELL COUNT 3.86 10^6/uL (4.18-5.33); RED CELL DISTRIBUTION WIDTH 15.7 % (11.5-15.2)
[2016-10-09 06:49] LABS: ANION GAP 9 mEq/L (8-16); CALCIUM 8.8 mg/dL (8.5-10.4); CARBON DIOXIDE 31 mEq/l (22-31); CHLORIDE 100 mEq/L (97-110); CREATININE 0.5 mg/dL (0.6-1.0); GLOMERULAR FILTRATION RATE > 60; GLUCOSE 113 mg/dL (70-100); POTASSIUM 3.2 mEq/L (3.5-5.2); SODIUM 140 mEq/L (134-144)
--- NOTE | 2016-10-09 08:55 | HOSPPROG ---
Hospitalist Progress Note Assessment/Plan: #Nausea/vomiting: improved with venting G-tube. h/o duodenal obstruction due to cancer -small bowel follow through negative for SBO #Duodenal obstruction: vented gastrostomy tube placed. Tolerating TFs #Hypokalemia: repleting #Metastatic pancreatic cancer -prognosis 6 months. She is on board trialing another day, but will stop if not tolerating -Palliative care on board #Fever: low-grade. + metapneuomvirus. Supportive care. No IV abx #Thrombocytopenia: due to chemo #Diet: TFs #Disp: warrants inpt admission for surgical consult, IVFs, electrolyte repletion Subjective: feeling much better after g-tube placement. Tolerating feeds Objective: Vital Signs Temp Pulse Resp BP Pulse Ox 36.7 C 83 16 116/74 97 10/09/16 07:54 10/09/16 07:54 10/09/16 07:54 10/09/16 07:54 10/09/16 07:54 Laboratory Results 10/09/16 06:03 10/09/16 06:03 10/08/16 10/09/16 10/10/16 05:59 05:59 05:59 Intake Total 350 2813 Output Total 1822 Balance 350 991 PT 17.7 SEC (12.0-15.0) H 10/08/16 05:40 INR 1.46 (0.83-1.16) H 10/08/16 05:40 - Physical Exam Constitutional: no apparent distress, other (smiling) Eyes: PERRL Ears, Nose, Mouth, Throat: moist mucous membranes, hearing normal Cardiovascular: regular rate and rhythym, no murmur, rub, or gallop Respiratory: no respiratory distress, no rales or rhonchi Gastrointestinal: normoactive bowel sounds, soft, non-tender abdomen, other (G- tube and J-tube in place without redness, pain) Skin: warm Musculoskeletal: full muscle strength Neurologic: AAOx3 Psychiatric: interacting appropriately Lymph, Heme, Immunologic: no cervical LAD ICD10 Worksheet Patient Problems: Problems Problem Status Onset Palliative care encounter Acute Pancreatic cancer Acute Partial small bowel obstruction Acute Pneumonia Acute Pancreatic cancer Acute
--- NOTE | 2016-10-09 09:03 | SOAPPROG ---
SOAP Progress Note Assessment/Plan: Assessment: 1. Duodenal obstruction from pancreatic cancer: She will have a venting gastrostomy performed by yesterday. 2. Worsening pancreatic cancer: We discussed a prognosis of less than 6 months. We talked about what to expect. she will talk to Dr. Constantino about further options: I outlined possible therapy with cape or other but these options are not highly effective. Alternatives include a clinical trial and Foundation testing is pending. Another otpion we discussed is hopsice but she is not interested now. Her goals are to be at home and to at home. She wants to find more strength so she can sit outside and take walks and be with her loved ones. Plan: 10/08/16 07:27 10/09/16 09:03 Subjective: Priya is a very pleasant 61 yo F with metastatic pancreatic cancer and recurrent N/V due to duodenal obstruction. Today we discussed that the cancer is getting worse and i met with her and her family. The venting G tube is not working as it should. Initially she put out 3 liters. Objective: Vital Signs Temp Pulse Resp BP Pulse Ox 36.7 C 83 16 116/74 97 10/09/16 07:54 10/09/16 07:54 10/09/16 07:54 10/09/16 07:54 10/09/16 07:54 Laboratory Results 10/09/16 06:03 10/09/16 06:03 10/08/16 10/09/16 10/10/16 05:59 05:59 05:59 Intake Total 350 2813 Output Total 1822 Balance 350 991 PT 17.7 SEC (12.0-15.0) H 10/08/16 05:40 INR 1.46 (0.83-1.16) H 10/08/16 05:40 looks ok. Lungs clear CVS reg - Time Spent With Patient Time Spent With Patient: 45 min ICD10 Worksheet Patient Problems: Problems Problem Status Onset Palliative care encounter Acute Pancreatic cancer Acute Partial small bowel obstruction Acute Pneumonia Acute Pancreatic cancer Acute
--- NOTE | 2016-10-09 09:27 | SOAPPROG ---
[facility]AN[facility] Progress Note Assessment/Plan: Assessment: s/p lap assisted J tube . Gastrostomy tube placed by Dr. Vinson 10/08/16 Feeling well Start tube feeds today. No more than 50% of goal - advance over 3-5 days depending on if she tolerates it Home if tolerates 50% of tube feeds Can either manually drain g tube 3x per day or put to gravity S: Feeling well thin bilious drainage from g-tube Objective: Vital Signs Temp Pulse Resp BP Pulse Ox 36.7 C 83 16 116/74 97 10/09/16 07:54 10/09/16 07:54 10/09/16 07:54 10/09/16 07:54 10/09/16 07:54 Laboratory Results 10/09/16 06:03 10/09/16 06:03 10/08/16 10/09/16 10/10/16 05:59 05:59 05:59 Intake Total 350 2813 Output Total 1822 Balance 350 991 PT 17.7 SEC (12.0-15.0) H 10/08/16 05:40 INR 1.46 (0.83-1.16) H 10/08/16 05:40 ICD10 Worksheet Patient Problems: Problems Problem Status Onset Palliative care encounter Acute Pancreatic cancer Acute Partial small bowel obstruction Acute Pneumonia Acute Pancreatic cancer Acute
[2016-10-09] MEDS: POTASSIUM Cl (KCl) 100 ML IV SCH ×3 (09:50→12:33)
[2016-10-09] MEDS: ENOXAPARIN 40 MG/0.4 ML SYR SC SCH (09:50)
--- NOTE | 2016-10-09 13:34 | PDPCPN ---
Palliative Care Progress Note Assessment/Plan: Referring provider: Reason for consult: Complex medical decision making Symptom control HPI: Priya De Jesus (Debbie) is a 61 yo female with met pancreatic cancer admitted with increased abdominal distention, nausea and vomiting. Dx with cancer 07/2016 s/p treatment. Recent j tube placement for nutrition due to known duodenal obstruction last week. Was getting tube feedings at home but with increasing discomfort. On admission with multiple bowel movements after OTC laxatives. Xray negative for new obstruction. Underwent venting g tube placement yesterday with much improved symptom relief. Palliative care consulted for complex medical decision making. Met with Tammy and her sister, brother, and son at the bedside this morning. Tammy is feeling much better after her g tube placement. She is looking forward to going home. She has plans to speak with Dr Constantino next week about possible treatment options. She has another great grandchild due in January and hopes to live until then. She enjoys being at home with her family and being as independent as possible. She lives with her brother and sister who are able to help her with anything she needs. Discussed having HHC RN check in on occasional to help with multiple tubes and tube feedings. The family is familiar with hospice care and while they would like to start with [facility] they also realize that Tammy will need hospice care at some point. Discussed hospice when treatment is no longer benefiting Tammy. She would like to be at home at her brother's house. Assessment: Physical: - Pain: at times abdomen -tylenol PRN - Nausea/vomiting: much improved after g tube - s/p venting g tube - zofran PRN - constipation - at risk with opiates - continue senna and colace for prevention - MOM or mag citrate PRN Emotional/psychological: doing ok. Has a lot of support from family. Advanced Care Planning: Is patient decisional?: yes Code Status: full MD POA: unsure who is MDPOA. Family states they have paperwork Plan: Home with HHC RN for tube feeding education. Follow up with oncology next week. 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 Has 1 son and 1 daughter, grandchildren and great grandchildren. Brother and sister also local and very involved. Medication list reviewed ROS: General: fatigue, weakness, weight loss ENT: negative Resp: cough GI: poor appetite, nausea/vomiting, constipation resolved : negative MS: negative Skin: negative Neuro: negative Psych: negative Functional assessment: PPS: 60% Functional status:needs minimal assistance with ADLs. Vital Signs Temp Pulse Resp BP Pulse Ox 36.8 C 83 16 123/77 H 98 10/09/16 11:53 10/09/16 11:53 10/09/16 11:53 10/09/16 11:53 10/09/16 11:53 Laboratory Results 10/09/16 06:03 10/09/16 06:03 10/08/16 10/09/16 10/10/16 05:59 05:59 05:59 Intake Total 350 2813 Output Total 1822 Balance 350 991 PT 17.7 SEC (12.0-15.0) H 10/08/16 05:40 INR 1.46 (0.83-1.16) H 10/08/16 05:40 Physical Exam - Physical Exam General Appearance: alert, no apparent distress Respiratory: No respiratory distress, No accessory muscle use Skin: normal color, warm/dry Extremities: No pedal edema Neuro/Psych: alert, oriented x 3 ICD10 Worksheet Patient Problems: Problems Problem Status Onset Palliative care encounter Acute Pancreatic cancer Acute Partial small bowel obstruction Acute Pneumonia Acute Pancreatic cancer Acute - ICD10 Problem Qualifiers (1) Palliative care encounter
[2016-10-09] MEDS: D5W NS 1,000 ML IV SCH (15:59)
[2016-10-10 04:32] LABS: ANION GAP 7 mEq/L (8-16); CALCIUM 8.7 mg/dL (8.5-10.4); CARBON DIOXIDE 31 mEq/l (22-31); CHLORIDE 100 mEq/L (97-110); CREATININE 0.6 mg/dL (0.6-1.0); GLOMERULAR FILTRATION RATE > 60; GLUCOSE 129 mg/dL (70-100); POTASSIUM 3.3 mEq/L (3.5-5.2); SODIUM 138 mEq/L (134-144)
--- NOTE | 2016-10-10 06:39 | SOAPPROG ---
SOAP Progress Note Assessment/Plan: Assessment: Plan: From surgical standpoint, J tube site is c/d/i, she is tolerating feeds at 50% of goal, advancing appropriately. She is also having bowel function. OK for home from out standpoint, cont to advance TFs as previously directed to goal. 10/10/16 06:38 Objective: Vital Signs Temp Pulse Resp BP Pulse Ox 36.7 C 83 16 93/62 L 95 10/10/16 04:53 10/10/16 04:53 10/10/16 04:53 10/10/16 04:53 10/10/16 04:53 Laboratory Results 10/09/16 06:03 10/10/16 03:40 10/09/16 10/10/16 10/11/16 05:59 05:59 05:59 Intake Total 2813 4432 Output Total 1822 1717 Balance 991 4615 PT 17.7 SEC (12.0-15.0) H 10/08/16 05:40 INR 1.46 (0.83-1.16) H 10/08/16 05:40 ICD10 Worksheet Patient Problems: Problems Problem Status Onset Palliative care encounter Acute Pancreatic cancer Acute Partial small bowel obstruction Acute Pneumonia Acute Pancreatic cancer Acute
[2016-10-10 08:51] VITALS: BP 96/52; PULSE 78; RESP 18; TEMP 98.9; O2SAT 96
[2016-10-10] MEDS: ENOXAPARIN 40 MG/0.4 ML SYR SC SCH (09:44)
[2016-10-10] MEDS ORDERED: POTASSIUM CL 20 MEQ/15 ML UDCUP TUBE ONE (10:40)
--- NOTE | 2016-10-10 10:42 | HOSPPROG ---
Hospitalist Progress Note Assessment/Plan: #Nausea/vomiting: improved with venting G-tube. h/o duodenal obstruction due to cancer -small bowel follow through negative for SBO #Duodenal obstruction: vented gastrostomy tube placed. Tolerating TFs #Hypokalemia: repleting #Metastatic pancreatic cancer -prognosis 6 months. She is on board trialing another day, but will stop if not tolerating -Palliative care on board #Fever: low-grade. + metapneuomvirus. Supportive care. No IV abx #Thrombocytopenia: due to chemo #Diet: TFs #Disp: DC today Subjective: tolerating TFs at half-goal Objective: Vital Signs Temp Pulse Resp BP Pulse Ox 37.2 C 78 18 96/52 L 96 10/10/16 08:49 10/10/16 08:49 10/10/16 08:49 10/10/16 08:49 10/10/16 08:49 Laboratory Results 10/09/16 06:03 10/10/16 03:40 10/09/16 10/10/16 10/11/16 05:59 05:59 05:59 Intake Total 2813 4432 Output Total 1822 1717 Balance 991 2715 PT 17.7 SEC (12.0-15.0) H 10/08/16 05:40 INR 1.46 (0.83-1.16) H 10/08/16 05:40 - Physical Exam Constitutional: no apparent distress Eyes: PERRL Ears, Nose, Mouth, Throat: moist mucous membranes, hearing normal Cardiovascular: regular rate and rhythym, no murmur, rub, or gallop Respiratory: no respiratory distress, no rales or rhonchi Gastrointestinal: soft, non-tender abdomen, other (quiet bowel sounds. G and J- tube in place. C/D/I) Genitourinary: no bladder fullness Skin: warm Musculoskeletal: full muscle strength Neurologic: AAOx3 Psychiatric: interacting appropriately ICD10 Worksheet Patient Problems: Problems Problem Status Onset Palliative care encounter Acute Pancreatic cancer Acute Partial small bowel obstruction Acute Pneumonia Acute Pancreatic cancer Acute
--- NOTE | 2016-10-10 11:15 | SOAPPROG ---
SOAP Progress Note Assessment/Plan: Assessment: Assessment: 1. Duodenal obstruction from pancreatic cancer: Gastrotomy placed. She feels much better today. She feels ready to go home. 2. Worsening pancreatic CA - Patient would like to discuss aims of care with Dr. Constantino this coming week as an outpatient. Plan: OK for discharge to home from oncology viewpoint. Follow up with Dr. Constantino within the week for goals of therapy planning. Subjective: Priya is a very pleasant 61 yo F with metastatic pancreatic cancer and recurrent N/V due to duodenal obstruction. She looks comfortable today. She is smiling and anxious to go home. Objective: Vital Signs Temp Pulse Resp BP Pulse Ox 37.2 C 78 18 96/52 L 96 10/10/16 08:49 10/10/16 08:49 10/10/16 08:49 10/10/16 08:49 10/10/16 08:49 Laboratory Results 10/09/16 06:03 10/10/16 03:40 10/08/16 10/09/16 10/10/16 23:59 23:59 23:59 Intake Total 1700 4040 1505 Output Total 7722 200 1578 Balance -122 3925 -97 PT 17.7 SEC (12.0-15.0) H 10/08/16 05:40 INR 1.46 (0.83-1.16) H 10/08/16 05:40 Physical Exam - Physical Exam General Appearance: alert, no apparent distress Respiratory: No rales, No rhonchi Cardiac/Chest: regular rate, rhythm Abdomen: non-tender, other (adequate bowel sounds. No significant tenderness.) Skin: warm/dry, pallor Neuro/Psych: alert, normal mood/affect, oriented x 3 ICD10 Worksheet Patient Problems: Problems Problem Status Onset Palliative care encounter Acute Pancreatic cancer Acute Partial small bowel obstruction Acute Pneumonia Acute Pancreatic cancer Acute
--- NOTE | 2016-10-10 11:52 | GDS ---
[f rep st] DISCHARGE SUMMARY DISCHARGE DIAGNOSES: 1. Duodenal obstruction from pancreatic cancer. 2. Acute nausea, vomiting. 3. Progressive pancreatic cancer. 4. Hypokalemia. 5. Fever. 6. Metapneumovirus. 7. Thrombocytopenia. HISTORY OF PRESENT ILLNESS: Patient is a very pleasant, 61-year-old female with metastatic pancreatic cancer with a duodenal ulcer who had a J-tube placed by Dr. Yao 09/28. She was doing well at home on Wednesday, however the home care team did not show she and her sister how to use the pump for tube feeds. She and her sister did 3 cans over 20 hours without any liquids and she subsequently developed increased abdominal distention, nausea, vomiting. She then took a break and re-tried on Wednesday with similar symptoms. She was recently diagnosed with pneumonia by her PCP and was prescribed antibiotics but hasn't filled script. Reported a cough for the past week with clear sputum but no fevers. No headache. Did have mild myalgias day of admission. HOSPITAL COURSE BY PROBLEM: 1. Acute nausea vomiting: small bowel through was negative for SBO. A concern was progression of her disease with the duodenal obstruction. Both oncology and surgery were consulted. It was determined that a venting gastrostomy tube was best option. This was placed by IR without complication and symptoms much improved. 2. Hypokalemia: Repleted. 3. Metastatic pancreatic cancer: understands she has likely 6 months to live. She has met with Palliative Care and will continue this as an outpatient. 4. Fever: Upon my review, x-ray was negative for pneumonia. Checked the viral panel which was positive for metapneumovirus. She was supportively treated. Has been afebrile since. 5. Diet: Patient is now tolerating tube feeds at half goal. The home [facility] has come and explained feedings with patient and family. Will advance slowly. She is currently tolerating them without nausea and vomiting. I provided p.r.n. Zofran. Disp: Patient is stable for discharge. New medications: Zofran. Followup with Dr. Dia. Time spent on discharge greater than 35 min counseling patient and coordinating care. /[id number]/MODL MTDD
--- NOTE | 2016-10-10 12:34 | PDIAF ---
- Diagnosis Code Status: Full Code - Medication Management Discharge Medications: Medications to Continue on Transfer Ondansetron Odt [Zofran Odt 4 mg (*)] 4 mg PO Q4HRS PRN #30 tab 10/10/16 [Last Taken Unknown] Discharge Medications: Refer to the Discharge Home Medication list for PRN reason. - Orders Services needed: Home Care, Registered Nurse Home Care Face to Face: I certify that this patient was under my care and that I had the required [id number] encounter meeting the encounter requirements on the discharge day. My findings support the fact that the patient is homebound as defined in CMS Chapter 7 Medicare Benefits Manual 30.1.1, The condition of the patient is such that there exists a normal inability to leave home and consequently, leaving home would require a considerable and taxing effort. Diet Recommendation: other (tube feeds per dietary notes) - Follow Up Care Current Providers and Referrals: SHANTAL TORRES [Primary Care Provider] - As per Instructions
== END 2016-10-10 13:00 | disposition home or self-care (01) | DRG 435 ==
LOC: INTOOBSV 13:26 → F1N 14:42 → OBSVTOIN 10-07 12:12
PROVIDERS: ADMIT Internal Medicine; ATTEND Internal Medicine
PROC: 3E0G76Z Introduction of Nutritional Substance into Upper GI, Via Natural or Artificial Opening (ICD-10-PCS; 2016-10-08)
PROC: 0DH63UZ Insertion of Feeding Device into Stomach, Percutaneous Approach (ICD-10-PCS; principal; 2016-10-08 14:09)
PROC: 0D9670Z Drainage of Stomach with Drainage Device, Via Natural or Artificial Opening (ICD-10-PCS; principal; 2016-10-08 14:09)
DX: C25.2 Malignant neoplasm of tail of pancreas (principal); K31.5 Obstruction of duodenum; J12.3 Human metapneumovirus pneumonia; C78.7 Secondary malignant neoplasm of liver and intrahepatic bile duct; Z96.642 Presence of left artificial hip joint; R19.7 Diarrhea, unspecified; E87.6 Hypokalemia; D69.59 Other secondary thrombocytopenia; T45.1X5A Adverse effect of antineoplastic and immunosuppressive drugs, initial encounter; Z51.5 Encounter for palliative care
CPT/HCPCS: 96365; 97165-GO; C1729; C1769; G0378; J0456; J0696; J1642; J1650; J2250; J2405; J2550; J3010; Q9967

== ENCOUNTER 2016-10-20 13:40 | Inpatient (IN) | payer MEDICAID ==
--- NOTE | 2016-10-20 15:09 | EDPHY ---
H & P Smoking Status: Never smoked <Viktor Wharton Flori - Last Filed: 10/20/16 15:11> <Krupa Valenzuela - Last Filed: 10/20/16 23:05> Time Seen by Provider: 10/20/16 14:26 HPI/ROS: Chief complaint. Abdominal pain HPI. A 61-year-old female presents to the emergency department with lower abdominal pain for 1 day. She was admitted for intestinal blockage October 09. She has a history of med up metastatic pancreatic cancer. Was determined she had a duodenal obstruction had a venting gastrostomy placed. She had feedings last night and has increased pain that is described as cramping to the low abdomen. No fever vomiting. Similar symptoms to her previous intestinal blockage. She also has an erythematous rash on her abdomen from the last several days ROS Constitutional. no fever/chills, no weakness Eyes. no problems with vision ENT. no sore throat, no nasal drainage Cardiovascular. no chest pain Respiratory. no shortness of breath, no cough Abdominal. Low abdominal pain and cramping and constipation . no problems urinating MS. no calf pain/swelling, no neck/back pain, no joint pain Skin. rash on abdomen Lymph. no swollen glands Neuro. no headache, no dizziness, no difficulty walking or with speech (Viktor Wharton) Past Medical/Surgical History: Pancreatic cancer, pneumonia, port placement, upper GI obstruction from tumor, venting gastrostomy (Viktor Wharton) Social History: , nonsmoker, no alcohol (Viktor Wharton) Physical Exam: General Appearance: Alert pleasant well-developed female moderate distress vital signs are stay Eyes: Pupils equal and round no pallor or injection. ENT, Mouth: Mucous membranes are moist. Respiratory: There are no retractions, lungs are clear to auscultation. Cardiovascular: Regular rate and rhythm. Gastrointestinal: Abdomen is soft with tenderness in the low abdomen. Decreased bowel sounds. Venting gastrostomy in place. Erythematous rash on her abdomen Neurological: Awake and alert, sensory and motor exams grossly normal. Skin: Warm and dry, no rashes. Musculoskeletal: Neck is supple nontender. Extremities symmetrical, full range of motion. Psychiatric: Patient is oriented X 3, there is no agitation. (Viktor Wharton) Constitutional: Initial Vital Signs Temperature (C) 36.8 C 10/20/16 13:54 Heart Rate 100 10/20/16 13:54 Respiratory Rate 20 10/20/16 13:54 Blood Pressure 103/62 10/20/16 13:54 O2 Sat (%) 95 10/20/16 13:54 O2 Delivery Mode Room Air O2 (L/minute) 2 Allergies/Adverse Reactions: hydromorphone [From Dilaudid] Allergy (Verified 10/20/16 13:53) Home Medications: Medication Instructions Recorded NK [No Known Home Meds] 10/20/16 Medical Decision Making <Viktor Wharton - Last Filed: 10/20/16 15:11> - Diagnostics Imaging: Discussed imaging studies w/ winch runner Radiologist <Krupa Valenzuela - Last Filed: 10/20/16 23:05> - Diagnostics Imaging Results: Imaging Impressions Abdomen X-Ray 10/20/16 15:10 Impression: 1. Nonspecific bowel gas pattern without evidence of obstruction. 2. Gastrostomy and jejunostomy tubes appear in similar position. Abdomen CT 10/20/16 17:32 Impression: 1. Infiltrative pancreatic mass in the midbody with associated adenopathy. Mass may contribute to partial duodenal obstruction and may infiltrate celiac axis region and could result in neurogenic pain. 2. Satisfactory positioning of gastrostomy and jejunal tubes. 3. Indeterminate hepatic lesions; comparison with prior studies would be helpful. 4. Severe spinal degenerative changes and probable canal stenosis. 5. See above report for additional findings. Results called and discussed with Krupa Valenzuela MD on 10/20/2016 at 1901 hours. Procedures: IV normal saline. Morphine for pain (Viktor Wharton) Other Provider: 3:15 p.m.: The patient was signed out to me by Dr. Wharton at shift change, lab work pending. 5:15 p.m.: I assessed the patient, she tells me she has been having progressively worsening abdominal pain, similar to previous intestinal blockage. She has felt weak. She has felt nauseous and developed a rash three days ago. On exam, patient has: Suprapubic and lower abdominal tenderness. No appreciable distention. She has an area of erythema around her J tube site. Acute rash. Plan: Na is currently 126, Potassium is 2.8. Plan to administer IV Potassium. I will admit the patient for further observation. 6:00 p.m.: Dr. Waller, General surgery, is on-call for Dr. Yao who has previously operated on the patient. He is aware of her course and will follow in the hospital. 6:05: I spoke to the hospitalist, the patient will be admitted to Dr. Gonzalez. CT imaging demonstrates an infiltrative pancreatic mass in the midbody with associated adenopathy. Mass may contribute to partial duodenal obstruction and may infiltrate celiac axis region and could result in neurogenic pain. (Krupa Valenzuela) Care Turn Over: Care to Dr. Valenzuela at 3:15 p.m. (Viktor Wharton) - Data Points Laboratory Results: Laboratory Results 10/20/16 14:45 10/20/16 14:45 10/20/16 10/20/16 14:45 14:45 WBC 3.15 10^3/uL L 10^3/uL (3.80-9.50) RBC 4.07 10^6/uL L 10^6/uL (4.18-5.33) Hgb 12.6 g/dL g/dL (12.6-16.3) Hct 36.1 % L % (38.0-47.0) MCV 88.7 fL fL (81.5-99.8) MCH 31.0 pg pg (27.9-34.1) MCHC 34.9 g/dL g/dL (32.4-36.7) RDW 14.7 % % (11.5-15.2) Plt Count 372 10^3/uL 10^3/uL (150-400) MPV 10.8 fL fL (8.7-11.7) Neut % (Auto) 63.2 % % (39.3-74.2) Lymph % (Auto) 31.1 % % (15.0-45.0) [place] % (Auto) 3.5 % L % (4.5-13.0) Eos % (Auto) 0.3 % L % (0.6-7.6) Baso % (Auto) 0.6 % % (0.3-1.7) Nucleat RBC Rel Count 0.0 % % (0.0-0.2) Absolute Neuts (auto) 1.99 10^3/uL 10^3/uL (1.70-6.50) Absolute Lymphs (auto) 0.98 10^3/uL L 10^3/uL (1.00-3.00) Absolute Monos (auto) 0.11 10^3/uL L 10^3/uL (0.30-0.80) Absolute Eos (auto) 0.01 10^3/uL L 10^3/uL (0.03-0.40) Absolute Basos (auto) 0.02 10^3/uL 10^3/uL (0.02-0.10) Absolute Nucleated RBC 0.00 10^3/uL 10^3/uL (0-0.01) Immature Gran % 1.3 % H % (0.0-1.1) Immature Gran # 0.04 10^3/uL 10^3/uL (0.00-0.10) Sodium 126 mEq/L L mEq/L (134-144) Potassium 2.8 mEq/L L mEq/L (3.5-5.2) Chloride 75 mEq/L L mEq/L (97-110) Carbon Dioxide 36 mEq/l H mEq/l (22-31) Anion Gap 15 mEq/L mEq/L (8-16) BUN 42 mg/dL H mg/dL (7-23) Creatinine 0.9 mg/dL mg/dL (0.6-1.0) Estimated GFR > 60 Glucose 139 mg/dL H mg/dL (70-100) Calcium 9.5 mg/dL mg/dL (8.5-10.4) Medications Given: Discontinued Medications Sodium Chloride (Ns) 1,000 mls @ 0 mls/hr IV ONCE ONE; Wide Open PRN Reason: Protocol Stop: 10/20/16 15:11 Last Admin: 10/20/16 15:10 Dose: 1,000 mls Potassium Chloride (Potassium Cl 10 Meq (Premix)) 50 mls @ 50 mls/hr IV EDNOW ONE Stop: 10/20/16 18:30 Last Admin: 10/20/16 19:16 Dose: Not Given Potassium Chloride (Potassium Cl 10 Meq (Premix)) 100 mls @ 100 mls/hr IV EDNOW ONE Stop: 10/20/16 19:00 Last Admin: 10/20/16 18:15 Dose: 100 mls Morphine Sulfate (Morphine) 6 mg IVP EDNOW ONE Stop: 10/20/16 15:11 Last Admin: 10/20/16 15:25 Dose: 6 mg Departure <Viktor Wharton - Last Filed: 10/20/16 15:11> <Krupa Valenzuela - Last Filed: 10/20/16 23:05> - Departure Disposition: [facility] Inpatient Acute Clinical Impression: Hyponatremia, Hypokalemia, metastatic pancreatic cancer Abdominal pain Qualifiers: Abdominal location: generalized Qualified Code(s): R10.84 - Generalized abdominal pain Condition: Fair Report Scribed for: Krupa Valenzuela Report Scribed by: Eva Potts Date of Report: 10/20/16 Time of Report: 18:08 <Krupa Valenzuela - Last Filed: 10/20/16 23:05>
[2016-10-20] MEDS ORDERED: NS 1,000 ML IV ONE (15:10)
[2016-10-20 15:16] LABS: % IMMATURE GRANULYOCYTES 1.3 % (0.0-1.1); ABSOLUTE IMMATURE GRANULOCYTES 0.04 10^3/uL (0.00-0.10); ADD DIFF? NO; ADD MORPH? NO; ADD SCAN? NO; ATYPICAL LYMPHOCYTE FLAG 0 (0-99); FRAGMENT RBC FLAG 0 (0-99); HEMATOCRIT 36.1 % (38.0-47.0); HEMOGLOBIN 12.6 g/dL (12.6-16.3); LEFT SHIFT FLG 30 (0-99); LIPEMIA HEMOLYSIS FLAG 90 (0-99); MEAN CELL HEMOGLOBIN CONCENTR. 34.9 g/dL (32.4-36.7); MEAN CELL VOLUME 88.7 fL (81.5-99.8); MEAN PLATELET VOLUME 10.8 fL (8.7-11.7); PLATELET CLUMPS FLAG 0 (0-99); PLATELET COUNT 372 10^3/uL (150-400); RED BLOOD CELL COUNT 4.07 10^6/uL (4.18-5.33); RED CELL DISTRIBUTION WIDTH 14.7 % (11.5-15.2)
[2016-10-20 15:23] LABS: CALCIUM 9.5 mg/dL (8.5-10.4); CARBON DIOXIDE 36 mEq/l (22-31); CHLORIDE 75 mEq/L (97-110); CREATININE 0.9 mg/dL (0.6-1.0); GLOMERULAR FILTRATION RATE > 60; GLUCOSE 139 mg/dL (70-100); SODIUM 126 mEq/L (134-144)
[2016-10-20 15:33] LABS: ANION GAP 15 mEq/L (8-16); POTASSIUM 2.8 mEq/L (3.5-5.2)
[2016-10-20] MEDS ORDERED: POTASSIUM Cl (KCl) 50 ML IV ONE (17:31)
[2016-10-20] MEDS ORDERED: IOPAMIDOL (ISOVUE-300) 100 ML BTL ONE (17:43)
[2016-10-20] MEDS ORDERED: POTASSIUM Cl (KCl) 10 MEQ/100 ML BAG IV ONE (17:59)
[2016-10-20] MEDS ORDERED: POTASSIUM Cl (KCl) 100 ML IV ONE (18:01)
[2016-10-20] MEDS ORDERED: oxyCODONE IR 5 MG TAB PO PRN (22:57)
[2016-10-20] MEDS ORDERED: ACETAMINOPHEN 325 MG TAB PO PRN (22:57)
[2016-10-20] MEDS ORDERED: PROTOCOL POTASSIUM 1 DOSE MISC PRN (22:57)
[2016-10-20] MEDS ORDERED: ONDANSETRON 4 MG/2 ML VIAL IVP PRN (22:57)
[2016-10-20] MEDS: NS 1,000 ML IV SCH (23:46)
[2016-10-21 00:17] LABS: ANION GAP 9 mEq/L (8-16); CALCIUM 9.2 mg/dL (8.5-10.4); CARBON DIOXIDE 37 mEq/l (22-31); CHLORIDE 81 mEq/L (97-110); CREATININE 0.9 mg/dL (0.6-1.0); GLOMERULAR FILTRATION RATE > 60; GLUCOSE 102 mg/dL (70-100); POTASSIUM 3.3 mEq/L (3.5-5.2); SODIUM 127 mEq/L (134-144)
[2016-10-21] MEDS ORDERED: BISACODYL 10 MG SUPP PR PRN (00:22)
[2016-10-21] MEDS ORDERED: POLYETHYLENE GLYCOL 3350 17 GM PKT PO PRN (00:22)
[2016-10-21] MEDS ORDERED: MAGNESIUM HYDROXIDE 30 ML UDCUP PO PRN (00:22)
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
[2016-10-21] MEDS: HYDROCORTISONE 1% CREAM TP SCH ×3 (05:32→22:22)
[2016-10-21 06:12] LABS: ALANINE AMINOTRANSFERASE 112 IU/L (9-52); ALBUMIN 2.9 g/dL (3.5-5.0); ALKALINE PHOSPHATASE 139 IU/L (38-126); ANION GAP 8 mEq/L (8-16); ASPARTATE AMINOTRANSFERASE 97 IU/L (14-46); BILIRUBIN,TOTAL 1.2 mg/dL (0.1-1.4); BILIRUBIN-CONJUGATED 0.7 mg/dL (0.0-0.5); BILIRUBIN-UNCONJUGATED 0.5 mg/dL (0.0-1.1); CALCIUM 8.6 mg/dL (8.5-10.4); CARBON DIOXIDE 36 mEq/l (22-31); CHLORIDE 84 mEq/L (97-110); CREATININE 0.8 mg/dL (0.6-1.0); GLOMERULAR FILTRATION RATE > 60; GLUCOSE 104 mg/dL (70-100); MAGNESIUM 2.4 mg/dL (1.6-2.3); POTASSIUM 3.1 mEq/L (3.5-5.2); SODIUM 128 mEq/L (134-144); TOTAL PROTEIN 5.9 g/dL (6.3-8.2)
[2016-10-21] MEDS: ENOXAPARIN 40 MG/0.4 ML SYR SC SCH (07:59)
[2016-10-21] MEDS: SENNOSIDES/DOCUSATE SODIUM TAB PO SCH ×2 (07:59→22:22)
[2016-10-21] MEDS: POTASSIUM Cl (KCl) 100 ML IV SCH ×6 (08:55→22:24)
[2016-10-21] MEDS: NS 1,000 ML IV SCH ×2 (11:29→14:27)
[2016-10-21] MEDS: LACTULOSE 20 GM/30 ML UDCUP PO PRN (12:10)
--- NOTE | 2016-10-21 12:49 | HOSPPROG ---
Hospitalist Progress Note Assessment/Plan: 61 yo F w/ hx of metastatic pancreatic cancer diagnosed fairly recently (07/17), with last round of chemo last week, presenting with increased lower abdominal pain and constipation. # metastatic pancreatic cancer: has not been tolerating chemo very well and having increasing pain and n/v. Abd ct personally reviewed and notable for infiltrative pancreatic mass with partial duodenal obstruction and involvement of celiac axis leading to likely neuropathic pain. Oncology consulted as is general surgery. Patient and family state she is no longer interested in continuing chemo--will ask palliative care to get involved as she is still FC and seems her stated goals of care today do not match with that. # duodenal obstruction: due to panc cancer, sxs initially improved post placement of venting g tube but now increased again. As above. # abdominal pain: in setting of above, may be largely neuropathic given celiac plexus involvement but well controlled on prn morphine currently. Will consider addition of neurontin if pain control remains an issue # contact dermatitis versus cellulitis: surrounding g tube is area of erythema, noted to have associated pruritus. Query if related to leakage from the tube reported by family. Asking gen surg to evaluate to be sure they are not concerned for infection # hyponatremia: stable overnight, continue ns, does not appear overly dry on exam. Will check saravanan/uosms # constipation: minimal to no bowel sounds appreciated on exam and suspect continued obstruction as above, responding well to morphine in terms of pain, but reviewed this may worsen constipation. Ambulation as tolerated, bowel protocol # IP status, will need > 48 hours stay for eval/mgmt of above Patient new to my care. Old records reviewed and summarized as above. Care plan reviewed with DR. Helms and DR. Valle. Further hx obtained from patients family present at bedside. Subjective: today pain is much better controlled after getting morphine, she has not had a bm and does not feel as if she is passing gas, area around g tube is itchy Objective: Vital Signs Temp Pulse Resp BP Pulse Ox 36.6 C 83 16 79/44 L 99 10/21/16 07:22 10/21/16 07:22 10/21/16 07:22 10/21/16 07:24 10/21/16 07:22 Laboratory Results 10/21/16 05:40 10/20/16 10/21/16 10/22/16 05:59 05:59 05:59 Intake Total 500 Output Total 400 Balance 100 awake alert chronically ill appearing anicteric op clear rrr no mrg cta to ant exam soft, dec bs throughout, erythema surrounding g tube no cce warm dry well perfused oriented appropriate ICD10 Worksheet Patient Problems: Problems Problem Status Onset Abdominal pain Acute Hypokalemia Acute Hyponatremia Acute Palliative care encounter Acute Pancreatic cancer Acute Pancreatic cancer Acute Partial small bowel obstruction Acute Pneumonia Acute
--- NOTE | 2016-10-21 15:20 | WOCRNPDOC ---
GERMAN Advanced Assessment Note - Skin Integrity Problem, Advanced Assess Left Abdomen Drain Site Dressing Type: Open to Air Site Measurement - Head-to-Toe Length X Width X Depth (cm): Appox 3 cm marcelino tube Skin Integrity Problem Comment: Leaking noted around G tube with moderate itchy dermatitis. There are also a couple of other areas of moderate dermatitis noted on the midline and lower abdomen. Patient reports that the sites are from where the drainage collects when her g tube site leaks. Zinc cream may be helpful to protect site from the effluent. Dr Yao in room during assessment. Wound care will round again monday 10/23. Buttock Excoriation Dressing Type: Open to Air Marcelino Wound Tissue: Blanching, Erythema Skin Integrity Problem Comment: Small area of contusion with adjacent excoriation. Patient reports scratching buttocks. No pressure injury present.
--- NOTE | 2016-10-21 15:31 | SOAPPROG ---
SOAP Progress Note Assessment/Plan: Assessment: 61-year-old woman with metastatic pancreatic cancer obstructing the duodenum that is well known to me. She is status post jejunostomy tube. She is also status post decompressive gastrostomy tube. She had irritation around the jejunostomy site. She was doing well until last week when she had chemotherapy. She has since then not had a bowel movement. She is uncomfortable. She was admitted for weakness. She developed a rash over her abdomen. She complains of pruritus. Erythema around jejunostomy tube that does not appear to be infectious. Placed barrier cream such as zinc oxide. I placed 1 more cc of saline into her jejunostomy balloon. She is not going to continue with chemotherapy. She would also like to have labs drawn more frequently at home hopefully in order to avoid readmission to the hospital. I communicated this with Dr. Constantino and Dr. Helms. I will see her periodically through her out her hospital stay. Feel free to contact me with further questions or concerns Plan: 10/21/16 15:28 Objective: Vital Signs Temp Pulse Resp BP Pulse Ox 36.8 C 71 16 89/50 L 99 10/21/16 15:16 10/21/16 15:16 10/21/16 15:16 10/21/16 15:16 10/21/16 15:16 Laboratory Results 10/21/16 05:40 10/20/16 10/21/16 10/22/16 05:59 05:59 05:59 Intake Total 500 Output Total 400 200 Balance 100 -200 ICD10 Worksheet Patient Problems: Problems Problem Status Onset Abdominal pain Acute Hypokalemia Acute Hyponatremia Acute Palliative care encounter Acute Pancreatic cancer Acute Pancreatic cancer Acute Partial small bowel obstruction Acute Pneumonia Acute
[2016-10-21 18:16] LABS: POTASSIUM 3.4 mEq/L (3.5-5.2)
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
[2016-10-22] MEDS: POTASSIUM Cl (KCl) 100 ML IV SCH ×4 (01:19→11:13)
[2016-10-22] MEDS: NS 1,000 ML IV SCH ×2 (01:44→15:08)
[2016-10-22 05:19] LABS: POTASSIUM 3.4 mEq/L (3.5-5.2)
[2016-10-22] MEDS: LACTULOSE 20 GM/30 ML UDCUP PO PRN (07:44)
[2016-10-22] MEDS: ENOXAPARIN 40 MG/0.4 ML SYR SC SCH (07:44)
[2016-10-22] MEDS: HYDROCORTISONE 1% CREAM TP SCH ×3 (08:17→20:06)
[2016-10-22] MEDS: SENNOSIDES/DOCUSATE SODIUM TAB PO SCH ×2 (08:17→20:06)
--- NOTE | 2016-10-22 08:54 | SOAPPROG ---
SOAP Progress Note Assessment/Plan: Assessment: 61-year-old woman with metastatic pancreatic cancer obstructing the duodenum that is well known to me. She is status post jejunostomy tube. She is also status post decompressive gastrostomy tube. She had irritation around the jejunostomy site. She had a bm last night and her skin feels improved Will follow peripherally Agree with palliative. skin less irritated Plan: 10/21/16 15:28 10/22/16 08:52 Objective: Vital Signs Temp Pulse Resp BP Pulse Ox 36.8 C 75 16 89/52 L 99 10/22/16 05:46 10/22/16 05:46 10/22/16 05:46 10/22/16 05:46 10/22/16 05:46 Laboratory Results 10/22/16 05:00 10/21/16 10/22/16 10/23/16 05:59 05:59 05:59 Intake Total 500 400 Output Total 400 1200 Balance 100 -800 ICD10 Worksheet Patient Problems: Problems Problem Status Onset Abdominal pain Acute Hypokalemia Acute Hyponatremia Acute Palliative care encounter Acute Pancreatic cancer Acute Pancreatic cancer Acute Partial small bowel obstruction Acute Pneumonia Acute
--- NOTE | 2016-10-22 09:58 | SOAPPROG ---
SOAP Progress Note Assessment/Plan: Assessment: * Abdominal pain-improved after several bowel movements. Taking IV morphine sparingly. Has not needed any pain meds at home. May benefit from having roxinal at home to administer thru the jejunostomy prn. * Metastatic pancreatic cancer-patient is clear she wants to discontinue treatment. Wishes to be DNR, but is planning on discussing further with her family during the palliative care consult scheduled for 9:30. * Dispo-likely home soon, but doesn't feel strong enough to go today. Plan: 10/22/16 09:54 Subjective: abdominal pain improved, feels treatment makes her feel worse Objective: Vital Signs Temp Pulse Resp BP Pulse Ox 36.8 C 83 16 101/61 98 10/22/16 09:40 10/22/16 09:40 10/22/16 09:40 10/22/16 09:40 10/22/16 09:40 Laboratory Results 10/22/16 05:00 10/21/16 10/22/16 10/23/16 05:59 05:59 05:59 Intake Total 500 400 Output Total 400 1200 Balance 100 -800 Physical Exam - Physical Exam General Appearance: alert, no apparent distress Respiratory: lungs clear Abdomen: non-tender, soft, other (J-tube and G-tube) Skin: other (erythematous rash on abdomen.) Extremities: No pedal edema ICD10 Worksheet Patient Problems: Problems Problem Status Onset Abdominal pain Acute Hypokalemia Acute Hyponatremia Acute Palliative care encounter Acute Pancreatic cancer Acute Pancreatic cancer Acute Partial small bowel obstruction Acute Pneumonia Acute
[2016-10-22] MEDS ORDERED: morphINE 10 MG/0.5 ML UDSYR PO PRN (10:49)
--- NOTE | 2016-10-22 14:21 | HOSPPROG ---
Hospitalist Progress Note Assessment/Plan: 61 yo F w/ hx of metastatic pancreatic cancer diagnosed fairly recently (07/17), with last round of chemo last week, presenting with increased lower abdominal pain and constipation. # metastatic pancreatic cancer: has not been tolerating chemo and plans to no longer undergo tx. Is considering hospice and palliative involved but currently not yet ready to change her code status to DNR. Pain now controlled on minimal opiates and better after bm. # duodenal obstruction: due to panc cancer, sxs initially improved post placement of venting g tube but now increased again. As above. # abdominal pain: today not much of an issue post bm, will likely dc on roxanol # contact dermatitis versus cellulitis: surrounding g tube is area of erythema, noted to have associated pruritus, gen surg aware, stable # hyponatremia: stable overnight, continue ns, does not appear overly dry on exam. # constipation: minimal to no bowel sounds appreciated on exam and suspect continued obstruction as above, responding well to morphine in terms of pain, but reviewed this may worsen constipation. Ambulation as tolerated, bowel protocol # IP status, will need > 48 hours stay for eval/mgmt of above Care plan reviewed with oncology, palliative care Subjective: no significant overnight events, patient somnolent but states not in pain Objective: Vital Signs Temp Pulse Resp BP Pulse Ox 36.8 C 83 16 101/61 98 10/22/16 09:40 10/22/16 09:40 10/22/16 09:40 10/22/16 09:40 10/22/16 09:40 Laboratory Results 10/22/16 05:00 10/21/16 10/22/16 10/23/16 05:59 05:59 05:59 Intake Total 500 400 Output Total 400 1200 Balance 100 -800 awake alert chronically ill appearing anicteric op clear rrr no mrg cta to ant exam soft, dec bs throughout, erythema surrounding g tube no cce warm dry well perfused oriented appropriate ICD10 Worksheet Patient Problems: Problems Problem Status Onset Abdominal pain Acute Hypokalemia Acute Hyponatremia Acute Palliative care encounter Acute Pancreatic cancer Acute Pancreatic cancer Acute Partial small bowel obstruction Acute Pneumonia Acute
--- NOTE | 2016-10-22 17:15 | PDPCPN ---
Palliative Care Progress Note Assessment/Plan: Referring provider: Dr Zhao Reason for consult: Complex medical decision making Symptom control HPI: Priya De Jesus (Debbie) is a 61 yo female with PMH met pancreatic ca dx 07/2016 last chemo admitted to the hospital for increased abdominal pain and severe constipation. She has had some small bowel movements since admission with bowel protocol. Some hyponatremia at admission, most recent 128 and hypokalemia. Palliative care consulted for complex medical decision making. Met with sister, brother, and son outside of the room. They stated Tammy has chosen not to continue with chemo at this time as she just feels awful after treatments and her quality of life suffers because of symptom burden. She was feeling really good after she left the hospital last time, was able to be outside, clear out her house and spend time with family. She started having more symptoms right after she received chemo. Most of her symptoms are constipation with severe abdominal cramps and pain. Her family would like to maintain her electrolytes while also focusing on improving her quality of life with aggressive symptom control. We spoke about possible discharge options. Her family does not feel they are ready for hospice just yet as Tammy still wants some life prolongation. We also spoke about a DNR and they will support Tammy' s decision in that. spent a brief time with Tammy as she was very fatigued from just receiving morphine but spoke about her continued abdominal pain and need for home morphine as needed. Assessment: Physical: - Pain: abdominal pain - roxanol 3-5mg PO Q2hr PRN- please try before discharge home - morphine IV PRN- try PO first - Nausea/vomiting: - zofran PRN - mostly due to chemo - has venting g tube - constipation - ongoing issue at home - continue scheduled senna/colace at home - miralax or MOM PRN Emotional/psychological: doing ok. Well support by her family Advanced Care Planning: Is patient decisional?: Code Status: Full- she would like to address DNR and fill out a MOST form tomorrow. MD CANTU: Would like her sister to be MDPOA but has not filled out the forms yet Plan: She is not interested in further chemo but would like to maintain her electrolytes along with focus on symptom management for good quality of life and some prolongation. Follows with [facility] at home and they will add palliative care services at discharge. 10/22/16 17:15 Subjective: some abdominal pain Objective: Social History: Adult son involved. Lives with Brother and sister. 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 Medication list reviewed ROS: General: fatigue, weakness, weight loss ENT: negative Resp: negative GI: poor appetite, nausea- venting tube, abdominal pain, constipation : negative MS: negative Skin: negative Neuro: negative Psych: occasional anxiety Functional assessment: PPS: 50% Functional status: independent Vital Signs Temp Pulse Resp BP Pulse Ox 36.8 C 83 16 101/61 98 10/22/16 09:40 10/22/16 09:40 10/22/16 09:40 10/22/16 09:40 10/22/16 09:40 Laboratory Results 10/22/16 05:00 10/21/16 10/22/16 10/23/16 05:59 05:59 05:59 Intake Total 500 400 Output Total 400 1200 50 Balance 100 -800 -50 Physical Exam - Physical Exam General Appearance: no apparent distress, other (fatigued) Respiratory: No respiratory distress, No accessory muscle use Skin: normal color, warm/dry Extremities: No pedal edema Neuro/Psych: alert, oriented x 3 ICD10 Worksheet Patient Problems: Problems Problem Status Onset Abdominal pain Acute Hypokalemia Acute Hyponatremia Acute Palliative care encounter Acute Pancreatic cancer Acute Pancreatic cancer Acute Partial small bowel obstruction Acute Pneumonia Acute
[2016-10-22 20:02] LABS: POTASSIUM 3.6 mEq/L (3.5-5.2)
[2016-10-22] MEDS: POTASSIUM Cl (KCl) 50 ML IV SCH ×3 (20:28→22:51)
[2016-10-23 05:13] LABS: ANION GAP 6 mEq/L (8-16); CALCIUM 8.4 mg/dL (8.5-10.4); CARBON DIOXIDE 26 mEq/l (22-31); CHLORIDE 98 mEq/L (97-110); CREATININE 0.6 mg/dL (0.6-1.0); GLOMERULAR FILTRATION RATE > 60; GLUCOSE 76 mg/dL (70-100); POTASSIUM 4.1 mEq/L (3.5-5.2); SODIUM 130 mEq/L (134-144)
--- NOTE | 2016-10-23 09:30 | SOAPPROG ---
SOAP Progress Note Assessment/Plan: Assessment: 61yo F with metastatic pancreatic cancer obstructing the duodenum s/ p feeding J-tube and decompressive G-tube placement Irritation around J tube site improving with zinc Return of bowel function Resume tube feeds Will d/c soon with palliative Seen c Dr. harris Objective: Vital Signs Temp Pulse Resp BP Pulse Ox 36.7 C 87 16 90/57 L 97 10/23/16 05:15 10/23/16 05:15 10/23/16 05:15 10/23/16 05:15 10/23/16 05:15 Laboratory Results 10/23/16 04:15 10/22/16 10/23/16 10/24/16 05:59 05:59 05:59 Intake Total 400 2092 Output Total 1200 350 Balance -800 1742 ICD10 Worksheet Patient Problems: Problems Problem Status Onset Abdominal pain Acute Hypokalemia Acute Hyponatremia Acute Palliative care encounter Acute Pancreatic cancer Acute Pancreatic cancer Acute Partial small bowel obstruction Acute Pneumonia Acute
[2016-10-23] MEDS: SENNOSIDES/DOCUSATE SODIUM TAB PO SCH ×2 (10:02→21:39)
[2016-10-23] MEDS: ENOXAPARIN 40 MG/0.4 ML SYR SC SCH (10:02)
[2016-10-23] MEDS: HYDROCORTISONE 1% CREAM TP SCH (10:03)
--- NOTE | 2016-10-23 11:12 | PDPCPN ---
Palliative Care Progress Note Assessment/Plan: HPI: Priya De Jesus (Debbie) is a 61 yo female with PMH met pancreatic ca dx 07/2016 last chemo admitted to the hospital for increased abdominal pain and severe constipation. She has had some small bowel movements since admission with bowel protocol. Some hyponatremia at admission, most recent 128 and hypokalemia. Palliative care consulted for complex medical decision making. Tammy seen this Am with sister present. Tammy states her abdominal pain is much improved and has not needed any morphine today. She is still feeling a little "out of it" but improving and almost back to baseline. She is hoping to restart tube feedings today so she can get some strength. She is looking forward to going home again. Discussed having continued HHC RN and palliative care follow. For now they want weekly labs to monitor her NA and K but also are aware of the option of hospice care when needed. Filled out a MOST form with DNR -DNI- selective measures. Assessment: Physical: - Pain: abdominal pain - roxanol 3-5mg PO Q2hr PRN- please try before discharge home - morphine IV PRN- try PO first - Nausea/vomiting: - zofran PRN - mostly due to chemo - has venting g tube - constipation - ongoing issue at home - continue scheduled senna/colace at home - miralax or MOM PRN Emotional/psychological: doing ok. Well support by her family Advanced Care Planning: Is patient decisional?: Code Status: DNR- MOST form filled out today MD CANTU: Would like her sister to be MDPOA but has not filled out the forms yet Plan: She is not interested in further chemo but would like to maintain her electrolytes along with focus on symptom management for good quality of life and some prolongation. Follows with [facility] at home and they will add palliative care services at discharge. Subjective: i'm feeling much better today Objective: Vital Signs Temp Pulse Resp BP Pulse Ox 36.8 C 76 16 91/67 L 91 L 10/23/16 10:17 10/23/16 10:17 10/23/16 10:17 10/23/16 10:17 10/23/16 10:17 Laboratory Results 10/23/16 04:15 10/22/16 10/23/16 10/24/16 05:59 05:59 05:59 Intake Total 400 2092 Output Total 1200 350 Balance -800 1742 Physical Exam - Physical Exam General Appearance: alert, no apparent distress Respiratory: No respiratory distress, No accessory muscle use Skin: normal color, warm/dry Extremities: No pedal edema Neuro/Psych: alert, oriented x 3 ICD10 Worksheet Patient Problems: Problems Problem Status Onset Abdominal pain Acute Hypokalemia Acute Hyponatremia Acute Palliative care encounter Acute Pancreatic cancer Acute Pancreatic cancer Acute Partial small bowel obstruction Acute Pneumonia Acute
--- NOTE | 2016-10-23 12:22 | WOCRNPDOC ---
WOCRN Advanced Assessment Note - Skin Integrity Problem, Advanced Assess G-tube site Dressing Type: Other Other Dressing Type: Stay-fix tube securement dressing Dressing Description: Not Intact Closure Description: Sutures Exudate Amount: Scant Exudate Color: Reddish/Yellow Exudate Characteristic(s): Dried Integumentary Issue Intervention: Dressing Changed Suzie Wound Tissue: Intact Suzie Wound Swelling: None Skin Integrity Problem Comment: Replaced Stay-fix tube securement dressing around g-tube this morning. Suzie-tube skin is intact w/ no erythema or breakdown noted. There was scant, dried exudate immediately in and around the tube, which was easily removed w/ NS and gauze. Sutures securing tube remain intact. New Stay-fix dressing applied, which may be left in place for 7-10 days. Report given to community organization aide Dawn.
--- NOTE | 2016-10-23 13:09 | SOAPPROG ---
SOAP Progress Note Assessment/Plan: A/P: * Metastatic pancreatic cancer: she plans to stop chemo and pursue palliative care, although does not feel ready for hospice. Appreciate the help of the palliative service. * AP: well-managed with current pain meds. Trying Roxanol today as home regimen. * Anticipate d/c home tomorrow with home palliative care. 10/23/16 13:05 Subjective: Feels comfortable with pain management and plans for palliative care. No new concerns. O: VSS. Gen: NAD, comfortable. Lungs: breathing comfortably. Laboratory Tests 10/23/16 04:15 Sodium 130 L Potassium 4.1 Chloride 98 D Carbon Dioxide 26 D Anion Gap 6 L BUN 13 Creatinine 0.6 Glucose 76 Objective: Vital Signs Temp Pulse Resp BP Pulse Ox 36.8 C 76 16 91/67 L 91 L 10/23/16 10:17 10/23/16 10:17 10/23/16 10:17 10/23/16 10:17 10/23/16 10:17 Laboratory Results 10/23/16 04:15 10/22/16 10/23/16 10/24/16 05:59 05:59 05:59 Intake Total 400 2092 Output Total 1200 350 Balance -800 1742 ICD10 Worksheet Patient Problems: Problems Problem Status Onset Abdominal pain Acute Hypokalemia Acute Hyponatremia Acute Palliative care encounter Acute Pancreatic cancer Acute Pancreatic cancer Acute Partial small bowel obstruction Acute Pneumonia Acute
--- NOTE | 2016-10-23 16:37 | HOSPPROG ---
Hospitalist Progress Note Assessment/Plan: 61 yo F w/ hx of metastatic pancreatic cancer diagnosed fairly recently (07/17), with last round of chemo last week, presenting with increased lower abdominal pain and constipation. # metastatic pancreatic cancer: has not been tolerating chemo and plans to no longer undergo tx. Plan is to likely go home with palliative care in the morning. # duodenal obstruction: due to panc cancer, sxs initially improved post placement of venting g tube. # abdominal pain: much improved since admission, will dc with palliative care following at home with continued roxanol # contact dermatitis versus cellulitis: surrounding g tube is area of erythema, noted to have associated pruritus, gen surg aware, stable # hyponatremia: stable overnight, continue ns, does not appear overly dry on exam. # constipation: has improved, continue bowel protocol # IP status, will need > 48 hours stay for eval/mgmt of above Care plan reviewed with oncology Subjective: no significant overnight events, patient very somnolent today Objective: Vital Signs Temp Pulse Resp BP Pulse Ox 36.8 C 76 16 91/67 L 91 L 10/23/16 10:17 10/23/16 10:17 10/23/16 10:17 10/23/16 10:17 10/23/16 10:17 Laboratory Results 10/23/16 04:15 10/22/16 10/23/16 10/24/16 05:59 05:59 05:59 Intake Total 400 2092 Output Total 1200 350 Balance -800 1742 somnolent, minimally arousable, nad rrr no mrg cta to ant exam soft nt nd no cce ICD10 Worksheet Patient Problems: Problems Problem Status Onset Pancreatic cancer Acute Pneumonia Acute Pancreatic cancer Acute Partial small bowel obstruction Acute Palliative care encounter Acute Hyponatremia Acute Hypokalemia Acute Abdominal pain Acute
[2016-10-23 18:27] LABS: POTASSIUM 3.6 mEq/L (3.5-5.2)
[2016-10-23 19:33] VITALS: RESP 16
[2016-10-23] MEDS: NS 1,000 ML IV SCH (21:46)
[2016-10-24] MEDS ORDERED: POTASSIUM CL 20 MEQ/15 ML UDCUP PO ONE ×2 (00:30→12:57)
[2016-10-24] MEDS: HYDROCORTISONE 1% CREAM TP SCH ×2 (01:08→11:31)
[2016-10-24] MEDS: NS 1,000 ML IV SCH (06:18)
[2016-10-24 06:32] LABS: ANION GAP 7 mEq/L (8-16); CALCIUM 8.1 mg/dL (8.5-10.4); CARBON DIOXIDE 23 mEq/l (22-31); CHLORIDE 104 mEq/L (97-110); CREATININE 0.6 mg/dL (0.6-1.0); GLOMERULAR FILTRATION RATE > 60; GLUCOSE 151 mg/dL (70-100); POTASSIUM 3.2 mEq/L (3.5-5.2); SODIUM 134 mEq/L (134-144)
[2016-10-24 10:59] VITALS: BP 90/58; PULSE 88; TEMP 98.4; O2SAT 94
--- NOTE | 2016-10-24 11:15 | SOAPPROG ---
SOAP Progress Note Assessment/Plan: Assessment: 1. Metastatic pancreatic cancer 2. duodenal obstruction 3. hypokalemia She has decided not to pursue additional chemo, since it has been causing more symptoms. She would like to go home with palliative care. She wants to continue routine blood draws to follow her potassium for now. Plan: - ok to d/c to home from my perspective - i can review labs drawn by home health - f/u in clinic with me as needed -at some point will make sense to switch to home hospice 10/24/16 11:13 10/24/16 11:14 Subjective: comfortable. Objective: exam: chronically ill, NAD Lungs CTAB CV RRR no mGR ABd: +BS NT ND Ext: no edema Neuro: a+ox3 Vital Signs Temp Pulse Resp BP Pulse Ox 36.9 C 88 16 90/58 L 94 10/24/16 08:00 10/24/16 08:00 10/24/16 08:00 10/24/16 08:00 10/24/16 08:00 Laboratory Results 10/24/16 05:45 10/23/16 10/24/16 10/25/16 05:59 05:59 05:59 Intake Total 1422 3436 Output Total 350 350 Balance 1742 3086 ICD10 Worksheet Patient Problems: Problems Problem Status Onset Abdominal pain Acute Hypokalemia Acute Hyponatremia Acute Palliative care encounter Acute Pancreatic cancer Acute Pancreatic cancer Acute Partial small bowel obstruction Acute Pneumonia Acute
[2016-10-24] MEDS: SENNOSIDES/DOCUSATE SODIUM TAB PO SCH (11:31)
[2016-10-24] MEDS: ENOXAPARIN 40 MG/0.4 ML SYR SC SCH (11:31)
--- NOTE | 2016-10-24 13:03 | PDIAF ---
- Diagnosis Diagnosis: constipation Code Status: Do Not Resuscitate - Medication Management Discharge Medications: Medications to Continue on Transfer Hydrocortisone 1% [Hydrocortisone 1% cream (*)] 1 rocio TP BID cream 10/24/16 [ Last Taken Unknown] Potassium Chloride Po [Potassium Chloride 20 mg/15 ml (*)] 20 meq PO BID #60 udcup 10/24/16 [Last Taken Unknown] Sennosides/Docusate Sodium [Senokot-S] 1 - 2 tab PO BID #60 tab 10/24/16 [Last Taken Unknown] morphINE [Roxanol 10 mg/0.5 ml oral soln (*)] 3 - 5 mg PO Q2HRS PRN #30 udsyr [Last Taken Unknown] Discharge Medications: Refer to the Discharge Home Medication list for PRN reason. - Orders Services needed: Home Care, Registered Nurse Home Care Face to Face: I certify that this patient was under my care and that I had the required [id number] encounter meeting the encounter requirements on the discharge day. My findings support the fact that the patient is homebound as defined in CMS Chapter 7 Medicare Benefits Manual 30.1.1, The condition of the patient is such that there exists a normal inability to leave home and consequently, leaving home would require a considerable and taxing effort. Diet Recommendation: other (tube feeds) - Labs/Radiology BMP Date: 10/28/16 - Follow Up Care Current Providers and Referrals: Catarino Constantino MD [Primary Care Provider] - As per Instructions
--- NOTE | 2016-10-24 22:18 | GDS ---
[f rep st] DISCHARGE SUMMARY DISCHARGE DIAGNOSES: Include: 1. Metastatic pancreatic cancer. 2. Duodenal obstruction, acute. 3. Contact dermatitis. 4. Mild hyponatremia. 5. Hypokalemia. 6. History of duodenal obstruction, status post gastrostomy and jejunostomy tubes. HISTORY OF PRESENT ILLNESS: A 61-year-old female with a history of metastatic prostate cancer, last received chemo a week prior to presentation, who presented with lower abdominal pain. For details of patient's initial presentation, please see the history and physical dated 10/20/2016. PROCEDURES: 10/20/2016, patient had a CT of the abdomen that showed an infiltrative pancreatic mass , appropriately placed gastrostomy and jejunal tubes, and partial duodenal obstruction. HOSPITAL COURSE: By issue: 1. Acute duodenal obstruction. The patient was medically treated with fluid resuscitation, pain me dications, and bowel regimen. The patient has appropriately placed G and J tubes, and receiving tub e feeds. Her pain is markedly improved, and bowel function improved. Patient is being discharged h ome with p.r.n. nausea and pain medications, to follow in the outpatient setting. 2. Hypokalemia, thought secondary to decreased oral intake. Patient will continue potassium supple mentation, and have her labs checked in 5 days' time. Call results to Dr. Constantino. 3. Hyponatremia, secondary to hypovolemia. The patient had a normal sodium on the day of dispositi on after consistent fluid resuscitation. MEDICATIONS AT THE TIME OF DISPOSITION: Please reference med rec printed on 10/24/2016. FOLLOWUP APPOINTMENTS: Include with Dr. Constantino, as he determines, based on ongoing lab monitoring . Patient is being discharged with palliative care. PENDING STUDIES: At the time of this dictation, are none. /[id number]/MODL
== END 2016-10-24 15:00 | disposition home health service (06) | DRG 392 ==
LOC: F1N 20:14 → OBSVTOIN 22:55
PROVIDERS: ADMIT Student in an Organized Health Care Education/Training Program; ATTEND Internal Medicine
DX: K59.09 Other constipation (principal); C25.9 Malignant neoplasm of pancreas, unspecified; E87.1 Hypo-osmolality and hyponatremia; K31.5 Obstruction of duodenum; E87.6 Hypokalemia; L25.9 Unspecified contact dermatitis, unspecified cause; Z93.4 Other artificial openings of gastrointestinal tract status; Z93.1 Gastrostomy status; Z96.642 Presence of left artificial hip joint; Z80.1 Family history of malignant neoplasm of trachea, bronchus and lung; Z80.3 Family history of malignant neoplasm of breast; Z66 Do not resuscitate
CPT/HCPCS: 96365; 97161-GP; 97165-GO; J1642; J1650; Q9967